=== PATIENT | male | born 1970 | race Caucasian/White ===

== ENCOUNTER 2016-08-13 10:13 | Day surgery (SDC) | payer MEDICARE ==
[2016-08-09 08:46] VITALS: BMI 27.8
--- NOTE | 2016-08-13 06:31 | P.GSHP ---
History of Present Illness H&P Date: 08/13/16 CHIEF COMPLAINT: Symptomatic right inguinal hernia with left inguinal hernia. HISTORY OF PRESENT ILLNESS: Rommel Soliz is a 46 year-old male who is a patient of Dr. Núñez. He reports that over a year history of known right inguinal hernia. In the last several weeks to months, his pain has come to be worse including swelling along the right groin that has swollen at least to the size of a golf ball. He denies any changes in bowel habits, however he also has gastroesophageal reflux disease. He denies any known familial history of hernias. He denies any abdominal surgeries. He is unable to lift. He has a personal history of brain aneurysm, where he will have severe migraine headaches. His neurosurgeon is at [facility]. At this time, he states that there is no surgical intervention needed for his brain aneurysm. As he has come to be more symptomatic of his inguinal hernia, he now presents for further surgical intervention. PAST MEDICAL HISTORY: Please see list. PAST SURGICAL HISTORY: Please see list. MEDICATIONS: Please see list. ALLERGIES: Please see list. SOCIAL HISTORY: No illicit drug use FAMILY HISTORY: No reports of Crohn disease or ulcerative colitis. REVIEW OF ORGAN SYSTEMS: Neurological: History of headaches and seizure disorder, including brain aneurysm. GI: Denies any diarrhea or constipation that is associated to his hernia. He does reports gastroesophageal reflux disease. CONSTITUTIONAL: No fevers or chills. HEENT: Denies any trouble with vision, hearing or nosebleeds. No difficulty swallowing. LYMPHATIC: The patient denies any lumps and bumps around the neck. ENDOCRINE: Denies any thyroid disorders. Denies any blood sugar glucose intolerance. RESPIRATORY: Denies pneumonia. Denies any troubles with breathing or dyspnea on exertion. CARDIOVASCULAR: Denies any chest pain, palpitations, or recent heart attacks. GENITOURINARY: Denies any blood in urine or increased urinary frequency. MUSCULOSKELETAL: Denies any back pain, stiffness or joint arthritis. PSYCHIATRIC: Denies any depression or suicidal ideation. HEMATOLOGIC: Denies any abnormal bleeding or bruising. BREASTS: Denies any breast lumps, pain or nipple discharge. PHYSICAL EXAM: VITAL SIGNS: Stable Patient is a 46-year-old male. Abdomen: 1 cm reducible umbilical hernia and also a large bulge along the right groin and small bulge along the left. Findings are consistent with inguinal hernia. GENERAL: Well developed and in no acute distress. Pleasant. HEENT: No sclera icterus. Extraocular movements grossly intact. Moist buccal mucosa. Head is atraumatic, normocephalic. Hears conversational speech. No nasal drainage. NECK: Supple without lymphadenopathy. No JV distention. CHEST: Non-labored respirations and equal bilateral excursions. CARDIOVASCULAR: Regular rate and rhythm. Palpable 2+ radial pulses. ABDOMEN: Soft. Non-tender. Nondistended. MUSCULOSKELETAL: No clubbing, cyanosis or edema. NEUROLOGIC: No focal or lateralizing signs. PSYCH: Appropriate affect. Alert and oriented to person, place and time. ASSESSMENT: 1. History of symptomatic right inguinal hernia. 2. Left inguinal hernia. 3. Umbilical hernia, reducible. 4. Likely hiatal hernia with reflux disease. PLAN: 1. I have gone over surgical options including approaches of open versus laparoscopic over robotic assisted inguinal hernia repair. He has elected for minimally invasive technique. 2. As he has bilateral inguinal hernia, he has elected for laparoscopic bilateral inguinal hernia repair. Possible robotic technique was also reviewed. 3. A placement of mesh was also described. 4. Possibility of open technique was reviewed. 5. The patient will need at least 2 weeks of recovery. 6. DVT prophylaxis. 7. Antibiotics prophylaxis. 8. Upon further discussion, he does report a family history of cardiac disease with his father dying of a heart attack. However, he has medical clearance by his primary care provider. 9. He also sees his neurosurgeon, for which no additional surgical intervention is needed at this time for his aneurysm. 10. The patient had verbally agreed to pursue with surgery as described. Calculated risks were reviewed. Past Medical History Past Medical History: Hyperlipidemia, Osteoarthritis (OA), Seizure Disorder Additional Past Medical History / Comment(s): MIGRAINE HEADACHES, ANEURYSM-LEFT SIDE OF BRAIN, SEIZURE-LAST SEIZURE 2011, History of Any Multi-Drug Resistant Organisms: None Reported Past Surgical History: No Surgical Hx Reported Past Anesthesia/Blood Transfusion Reactions: No Reported Reaction Additional Past Anesthesia/Blood Transfusion Reaction / Comment(s): FIRST ANESTHETIC Past Psychological History: No Psychological Hx Reported Smoking Status: Former smoker Past Alcohol Use History: None Reported Additional Past Alcohol Use History / Comment(s): STARTED SMOKING AT AGE 16 QUIT 2000 Past Drug Use History: None Reported - Past Family History Mother Family Medical History: No Reported History Medications and Allergies Home Medications Medication Instructions Recorded Confirmed Type No Known Home Medications [No 01/21/16 08/09/16 History Known Home Medications] Allergies Allergy/AdvReac Type Severity Reaction Status Date / Time codeine Allergy Nausea & Verified 08/09/16 08:21 Vomiting
[~2016-08-13 10:13] MED LIST: ACETAMINOPHEN TAB 500 MG TAB PO STA; BUPIVACAINE LIPOSOME/PF 1.3% 20 ML, BUPIVACAIN-EPI 0.5%-1:200,000 25 ML, SODIUM CHLORID... MISCELLANE ONE; DEXAMETHASONE SOD PHOSPHATE 10 MG/ML 1 ML VIAL IV ONE; FAMOTIDINE 20 MG/2 ML VIAL IV PRN; HEPARIN SODIUM,PORCINE 5,000 UNIT/ML 1 ML VIAL SQ ONE; HYDROmorphone 1 MG/ML 1 ML SYRINGE IVP PRN; LACTATED RINGERS 1,000 ML IV SCH; LIDOCAINE 1% 20 ML VIAL (10MG/ML) FOR IV START INTRADERMA PRN; MIDAZOLAM 2 MG/2 ML VIAL IV PRN; ONDANSETRON 4 MG/2 ML VIAL IVP ONE; SCOPOLAMINE 1.5MG/72HR PATCH TRANSDERM ONE; ceFAZolin 2 GM in SODIUM CHLORIDE 0.9% 100 ML IVPB ONE
[2016-08-13] MEDS ORDERED: LIDOCAINE 1% INJ 10MG/ML (20 ML MDV) ONE (13:34)
[2016-08-13] MEDS ORDERED: fentaNYL (PF) 50 MCG/ML 2 ML AMP ONE (13:34)
[2016-08-13] MEDS ORDERED: NEOSTIGMINE 1 MG/ML 10 ML VIAL ONE (13:34)
[2016-08-13] MEDS ORDERED: GLYCOPYRROLATE 0.2 MG/ML 2 ML VIAL ONE (13:34)
[2016-08-13] MEDS ORDERED: PROPOFOL 10 MG/ML 20 ML VIAL IV ONE (13:34)
[2016-08-13] MEDS ORDERED: KETOROLAC 30 MG/ML 1 ML VIAL ONE (13:34)
[2016-08-13] MEDS ORDERED: MIDAZOLAM 2 MG/2 ML VIAL ONE (13:34)
[2016-08-13] MEDS ORDERED: ROCURONIUM BROMIDE 10 MG/ML 10 ML VIAL IV ONE (13:34)
[2016-08-13] MEDS ORDERED: SUCCINYLCHOLINE CHLORIDE 100 MG/5 ML SYR IV ONE (13:34)
[2016-08-13] MEDS ORDERED: LACTATED RINGERS 1,000 ML IV ONE (14:38)
[2016-08-13] MEDS ORDERED: TAMSULOSIN 0.4 MG CAP.ER.24H PO STA (15:17)
--- NOTE | 2016-08-13 15:17 | P.PCN ---
Date of Procedure: 08/13/16 Preoperative Diagnosis: Bilateral inguinal hernia, initial Postoperative Diagnosis: Right incarcerated direct inguinal hernia 4 cm, indirect right inguinal hernia Nyhus type I, left inguinal lipoma, left indirect inguinal hernia Nyhus to, direct left inguinal hernia Nyhus 1 Procedure(s) Performed: Laparoscopic reduction of right incarcerated inguinal hernia, bilateral laparoscopic inguinal hernia repair 11.4 cm, laparoscopic incision of left inguinal lipoma 6 x 4 cm Implants: Ventral light ST mesh 11.4 cm Anesthesia: GETA, local Surgeon: Annie Iniguez Estimated Blood Loss (ml): 2 Pathology: other (Bilateral inguinal hernia sac with left inguinal lipoma) Condition: stable Disposition: same day Operative Findings: 4 cm defect, right inguinal hernia, large lipoma left groin 4 x 6 cm excised
[2016-08-13] MEDS ORDERED: ONDANSETRON 4 MG/2 ML VIAL IVP PRN (15:19)
[2016-08-13] MEDS ORDERED: NALOXONE 0.4 MG/ML 1 ML VIAL IV PRN (15:19)
[2016-08-13 15:41] VITALS: TEMP 97.1
[2016-08-13] MEDS ORDERED: HYDROmorphone 1 MG/ML 1 ML SYRINGE IVP ONE (16:09)
[2016-08-13] MEDS ORDERED: ONDANSETRON 4 MG/2 ML VIAL IVP ONE (16:40)
--- NOTE | 2016-08-13 16:59 | P.OP ---
Date of Procedure: 08/13/16 Description of Procedure: SURGEON: ERIC NAVA MD SELLING MANAGER: BENITEZ HUSTON PREOPERATIVE DIAGNOSIS: 1. Initial bilateral inguinal hernia. 2. Cerebral aneurysm. 3. Seizure disorder. 4. Hyperlipidemia. POSTOPERATIVE DIAGNOSES: 1. Initial bilateral inguinal hernia. 2. Cerebral aneurysm. 3. Seizure disorder. 4. Hyperlipidemia. 5. Incarcerated initial right direct inguinal hernia, 4 cm, Nyhus type III. 6. Initial right indirect inguinal hernia Nyhus type II. 7. Initial left indirect and direct inguinal hernia, Nyhus type III. 8. Left inguinal lipoma of the cord. OPERATION: 1. Laparoscopic reduction of incarcerated initial rightinguinal hernia, direct. 2. Laparoscopic repair via transabdominal approach, left inguinal hernia using Ventral ST mesh, 11.4 cm. 3. Laparoscopic repair via transabdominal approach, right inguinal hernia using Ventral ST mesh, 11.4 cm. 4. Excision of left inguinal lipoma of the cord. IMPLANTS: Ventral ST mesh, 11.4 cm, bilateral groin. ANESTHESIA: General with 85 mL Exparel with Sensorcaine and epinephrine and normal saline mixture. ESTIMATED BLOOD LOSS: 2 mL. SPECIMENS: Bilateral inguinal hernia sac. COMPLICATIONS: None. INDICATIONS: The patient is a 46-year-old male who presented to the office with acute swelling of the right groin of golf-ball size. He also reports inguinal hernia on the left side. Surgical options were discussed including open versus laparoscopic technique and he elected for laparoscopic technique. Benefits and risks including bleeding, infection, recurrence, injury to the vas deferens, sterility, chronic groin pain, possible orchiectomy as well as placement of mesh were described. Informed consent was obtained. DESCRIPTION: The patient was brought into the operating room, laid in supine position. After general induction, a Wiley catheter was placed and the abdomen was prepped and draped in standard sterile fashion and placement of Ioban draping. Prior to incision, a timeout protocol was confirmed with surgical team regarding the patient's name including procedures to be performed. A bilateral groin and inguinal block was performed using Exparel with Sensorcaine epinephrine and normal saline mixture. Via the left upper abdomen a 0 degree 5 mm laparoscopic trocar entry was performed after anesthetizing the skin with Exparel mixture and incised using a #11 blade. An optical view trocar entry was performed. The patient tolerated insufflation to 15 mm Hg pressure. Diagnostic laparoscopy demonstrated a large right inguinal hernia, direct with incarceration of greater omentum without infarction. No evidence of ischemia or obstruction was found. A pantaloon hernia was identified along the left groin. Next, one 5 mm trocar and one 11-mm trocar were placed along the left lateral abdominal wall. Attention was brought to repair of the direct right inguinal hernia. The hernia sac was evaginated whereby the peritoneum was scored using electro- Bovie cautery including a combination of cordless Harmonic scalpel. Using continuous retraction as well as external pressure along the right groin, the right inguinal hernia was completely reduced into the abdominal cavity. Please note the hernia was identified medial to the epigastric vessels hence direct. Once completely reduced into the abdominal cavity, the peritoneal sac of the hernia was stripped and a lipoma of the right groin was reduced. The sac was resected and then passed off for further pathological analysis. The size of the hernia defect was 4 cm with intraoperative films obtained. Using a Endo stitch and 2-0 Surgidac, the peritoneal defect of the right inguinal hernia site was closed using a pursestring suture of 2-0 Surgidac with a Lapra-Ty. The defect was found to be completely closed after removal of the external pressure along the right groin. Complete reduction of the right inguinal hernia was confirmed. Next, attention was brought to the contralateral side which is the left groin. A defect of the left groin was identified of 2 cm. Exploration of the left groin demonstrated a large lipoma of the cord a 4 x 6 cm which was reduced. Counter pressure along the left groin including graspers were used to reduce the hernia sac into the abdominal wall. The left hernia sac was evaginated whereby the peritoneum was scored using electro- Bovie cautery including a combination of cordless Harmonic scalpel. Please note the hernia was identified lateral to the epigastric vessels hence indirect. Once completely reduced into the abdominal cavity, the peritoneal sac of the hernia was stripped and a lipoma of the left groin was reduced. The sac was resected and then passed off for further pathological analysis. The size of the hernia defect was 2 cm with intraoperative films obtained. Using a Endo stitch and 2-0 Surgidac, the peritoneal defect of the left inguinal hernia site was closed using a pursestring suture of 2-0 Surgidac with a Lapra-Ty. The defect was found to be completely closed after removal of the external pressure along the left groin. Complete reduction of the left inguinal hernia was confirmed. As an onlay, each inguinal hernia repair were reinforced using 11.[address] mesh by [employer]. The mesh was cut in half and individually entered into the abdominal cavity. The mesh was oriented onto the left groin. Sorbafix tackers were placed along the periphery of the mesh. Care was used to avoid neurovascular structures. The inferior leaflet of the mesh was secured by the sigmoid mesocolon. Next, the right groin was prepared for a mesh. The mesh was applied onto the right groin and tacked using Sorbafix tackers. 3-0 Vicryl intracorporeal suturing was used to tack the mesh along the inferior aspect. The right and left inguinal hernia sacs were removed from the abdominal cavity using using a 10 mm and 5 mm Endo Catch bag, respectively. The 10-mm port site fascial defect was less than 8 mm in size. All instruments and pneumoperitoneum were removed from the abdominal cavity. The bilateral groin and scrotal subcutaneous emphysema had resolved including using hyperventilation of the patient. Hemostasis was excellent throughout the case. All instruments and pneumoperitoneum were evacuated from the abdominal cavity. The port sites were infiltrated using Exparel mixture. Bilateral inguinal field block was also placed with local anesthetic. The incisions were reapproximated using 4-0 Monocryl in an interrupted subcuticular fashion. Dermabond was applied to the skin. At the end of the procedure, the needle sponge and instrument count had been verified correct by surgical services asst. The patient had tolerated the procedure well and was taken to the postanesthesia care unit in stable condition. The Wiley catheter was removed. FINDINGS: 1. Nyhus type III, initial left inguinal hernia, indirect 2-cm. 2. Lipoma of the left cord, 4 x 6 cm resected. 3. Nyhus type III direct right inguinal hernia, over 4 cm in size, with incarcerated greater omentum. 4. Small direct left inguinal hernia 1 cm. 5. Small indirect right inguinal hernia 1 cm.
[2016-08-13] MEDS ORDERED: KETOROLAC 30 MG/ML 1 ML VIAL IVP SCH (18:00)
[2016-08-13 18:33] VITALS: BP 125/70; PULSE 87; RESP 20
== END 2016-08-13 18:33 | disposition home or self-care (01) ==
LOC: OR 10:13
PROVIDERS: ATTEND Surgery Plastic and Reconstructive Surgery
DX: K40.00 Bilateral inguinal hernia, with obstruction, without gangrene, not specified as recurrent (principal); D17.6 Benign lipomatous neoplasm of spermatic cord; I67.1 Cerebral aneurysm, nonruptured; G40.909 Epilepsy, unspecified, not intractable, without status epilepticus; E78.5 Hyperlipidemia, unspecified; Z88.5 Allergy status to narcotic agent; Z87.891 Personal history of nicotine dependence
CPT/HCPCS: 49650; 55559; C1781 ×2; J2250; J1100; J2710; J0690; J2405; J2001; J3010; J1885; J1170; J0330; C9290; J2704; 88302; 88304

== ENCOUNTER → 2016-08-23 | Outpatient (CLI) | payer MEDICARE ==
--- NOTE | 2016-08-23 09:39 | CT ---
EXAMINATION TYPE: CT abdomen pelvis wo con DATE OF EXAM: 08/23/2016 9:15 AM HISTORY: Umbilical Hernia per order. History of prior surgery for inguinal hernias per patient. CT DLP: 974 mGycm. Automated Exposure Control for Dose Reduction was Utilized. TECHNIQUE: CT scan of the abdomen and pelvis is performed without oral or IV contrast. COMPARISON: NONE FINDINGS: Within the limitations of a non-contrast study, the following observations are made. LUNG BASES: No significant abnormality is appreciated. LIVER/GB: Liver is isodense relative to spleen consistent with mild diffuse fatty infiltration. PANCREAS: No significant abnormality is seen. SPLEEN: No significant abnormality is seen. ADRENALS: No significant abnormality is seen. KIDNEYS: No renal stones or hydronephrosis is evident bilaterally. Few scattered pelvic phleboliths a re seen. BOWEL: Normal-appearing appendix is seen from cecum in the right lower quadrant. No suspicious small or large bowel dilatation is present. GENITAL ORGANS: No gross abnormality seen. LYMPH NODES: No greater than 1cm abdominal or pelvic lymph nodes are appreciated. OSSEOUS STRUCTURES: No significant abnormality is seen. OTHER: There is small sized fat-containing umbilical hernia. There is defect through the inner rectus muscle left midabdomen on axial image 66 without definitive defect in the outer sheath at level of umbilicus. No suspicious fat or bowel containing ventral wall hernia is seen. There is bilateral curvilinear density with ill-defined fluid in the infracolic gutters bilaterally p resumed related to prior surgery, clinical correlation advised. This is best seen near axial image 12 1. Somewhat superior than expected for normal inguinal or groin repair surgery. IMPRESSION: No suspicious ventral wall hernia identified. Other findings as noted above.
== END | disposition home or self-care (01) ==
LOC: RADCTMAIN 08:55
PROVIDERS: ATTEND Surgery Plastic and Reconstructive Surgery
DX: K42.9 Umbilical hernia without obstruction or gangrene (principal)
CPT/HCPCS: 74176

== ENCOUNTER 2016-09-10 06:43 | Day surgery (SDC) | payer MEDICARE ==
[2016-09-05 10:13] VITALS: BMI 27.8
[~2016-09-10 06:43] MED LIST changes: -ACETAMINOPHEN TAB 500 MG TAB PO STA; -BUPIVACAINE LIPOSOME/PF 1.3% 20 ML, BUPIVACAIN-EPI 0.5%-1:200,000 25 ML, SODIUM CHLORID... MISCELLANE ONE; -FAMOTIDINE 20 MG/2 ML VIAL IV PRN; -HYDROmorphone 1 MG/ML 1 ML SYRINGE IVP PRN; -LACTATED RINGERS 1,000 ML IV SCH; -LIDOCAINE 1% 20 ML VIAL (10MG/ML) FOR IV START INTRADERMA PRN; -ONDANSETRON 4 MG/2 ML VIAL IVP ONE; -SCOPOLAMINE 1.5MG/72HR PATCH TRANSDERM ONE
[2016-09-10] MEDS: LACTATED RINGERS 1,000 ML IV SCH ×2 (07:16→07:21)
[2016-09-10] MEDS ORDERED: LIDOCAINE 1% 20 ML VIAL (10MG/ML) FOR IV START INTRADERMA ONE (07:20)
[2016-09-10] MEDS: ONDANSETRON 4 MG/2 ML VIAL IVP ONE ×2 (07:22→09:57)
[2016-09-10] MEDS ORDERED: ACETAMINOPHEN IV (For NPO) 1,000 MG in EMPTY BAG 1 BAG IVPB STA (07:36)
--- NOTE | 2016-09-10 07:36 | P.GSHP ---
History of Present Illness H&P Date: 09/10/16 CHIEF COMPLAINT: Symptomatic incarcerated umbilical hernia. HISTORY OF PRESENT ILLNESS: Rommel Soliz is a 46 year-old male who is a patient of Dr. Núñez. Recently he had bilateral inguinal hernia repair without consequence almost 1 month ago. Now presents with symptomatic incarcerated umbilical hernia. He now presents for further surgical intervention. PAST MEDICAL HISTORY: Please see list. PAST SURGICAL HISTORY: Please see list. MEDICATIONS: Please see list. ALLERGIES: Please see list. SOCIAL HISTORY: No illicit drug use FAMILY HISTORY: No reports of Crohn disease or ulcerative colitis. REVIEW OF ORGAN SYSTEMS: Neurological: History of headaches and seizure disorder, including brain aneurysm. GI: Denies any diarrhea or constipation that is associated to his hernia. He does reports gastroesophageal reflux disease. CONSTITUTIONAL: No fevers or chills. HEENT: Denies any trouble with vision, hearing or nosebleeds. No difficulty swallowing. LYMPHATIC: The patient denies any lumps and bumps around the neck. ENDOCRINE: Denies any thyroid disorders. Denies any blood sugar glucose intolerance. RESPIRATORY: Denies pneumonia. Denies any troubles with breathing or dyspnea on exertion. CARDIOVASCULAR: Denies any chest pain, palpitations, or recent heart attacks. GENITOURINARY: Denies any blood in urine or increased urinary frequency. MUSCULOSKELETAL: Denies any back pain, stiffness or joint arthritis. PSYCHIATRIC: Denies any depression or suicidal ideation. HEMATOLOGIC: Denies any abnormal bleeding or bruising. BREASTS: Denies any breast lumps, pain or nipple discharge. PHYSICAL EXAM: VITAL SIGNS: Stable Patient is a 46-year-old male. Abdomen: 1 cm reducible umbilical hernia and also a large bulge along the right groin and small bulge along the left. Findings are consistent with inguinal hernia. GENERAL: Well developed and in no acute distress. Pleasant. HEENT: No sclera icterus. Extraocular movements grossly intact. Moist buccal mucosa. Head is atraumatic, normocephalic. Hears conversational speech. No nasal drainage. NECK: Supple without lymphadenopathy. No JV distention. CHEST: Non-labored respirations and equal bilateral excursions. CARDIOVASCULAR: Regular rate and rhythm. Palpable 2+ radial pulses. ABDOMEN: Soft. Tender along the umbilicus. No skin changes. Incarcerated umbilical hernia. MUSCULOSKELETAL: No clubbing, cyanosis or edema. NEUROLOGIC: No focal or lateralizing signs. PSYCH: Appropriate affect. Alert and oriented to person, place and time. ASSESSMENT: 1. Incarcerated umbilical hernia. 4. Likely hiatal hernia with reflux disease. PLAN: 1. I have gone over surgical options including approaches of open versus laparoscopic over robotic assisted inguinal hernia repair. 2. As he has incarcerated umbilical hernia, he has elected for robotic assisted laparoscopic umbilical hernia repair. 3. A placement of mesh was also described. 4. Possibility of open technique was reviewed. 5. The patient will need at least 2 weeks of recovery. 6. DVT prophylaxis. 7. Antibiotics prophylaxis. 8. The patient had verbally agreed to pursue with surgery as described. Calculated risks were reviewed. Past Medical History Past Medical History: Hyperlipidemia, Osteoarthritis (OA), Seizure Disorder Additional Past Medical History / Comment(s): MIGRAINE HEADACHES, ANEURYSM-LEFT SIDE OF BRAIN, SEIZURE-LAST SEIZURE 2011,. HX PANCREATITIS R/T PRIOR FOOD POISONING History of Any Multi-Drug Resistant Organisms: None Reported Past Surgical History: Hernia Repair Additional Past Surgical History / Comment(s): BILAT HERNIA REPAIR 08/13/16 Past Anesthesia/Blood Transfusion Reactions: No Reported Reaction Additional Past Anesthesia/Blood Transfusion Reaction / Comment(s): FIRST ANESTHETIC Past Psychological History: No Psychological Hx Reported Smoking Status: Former smoker Past Alcohol Use History: None Reported Additional Past Alcohol Use History / Comment(s): STARTED SMOKING AT AGE 16 QUIT 2000 Past Drug Use History: None Reported - Past Family History Mother Family Medical History: No Reported History Medications and Allergies Allergies Allergy/AdvReac Type Severity Reaction Status Date / Time codeine Allergy Nausea & Verified 09/05/16 10:07 Vomiting Surgical - Exam Vital Signs Temp Pulse Resp BP Pulse Ox 98.0 F 82 16 154/94 98 09/10/16 07:14 09/10/16 07:14 09/10/16 07:14 09/10/16 07:14 09/10/16 07:14
[2016-09-10] MEDS ORDERED: LIDOCAINE 1% INJ 10MG/ML (20 ML MDV) ONE (07:45)
[2016-09-10] MEDS ORDERED: PROPOFOL 10 MG/ML 20 ML VIAL IV ONE (07:45)
[2016-09-10] MEDS ORDERED: fentaNYL (PF) 50 MCG/ML 2 ML AMP ONE (07:45)
[2016-09-10] MEDS ORDERED: SUCCINYLCHOLINE CHLORIDE 100 MG/5 ML SYR IV ONE (07:45)
[2016-09-10] MEDS ORDERED: NEOSTIGMINE 1 MG/ML 10 ML VIAL ONE (07:45)
[2016-09-10] MEDS ORDERED: ACETAMINOPHEN IV (For NPO) 1,000 MG/100 ML VIAL ONE (07:45)
[2016-09-10] MEDS ORDERED: ROCURONIUM BROMIDE 10 MG/ML 10 ML VIAL IV ONE (07:45)
[2016-09-10] MEDS ORDERED: GLYCOPYRROLATE 0.2 MG/ML 2 ML VIAL ONE (07:45)
[2016-09-10] MEDS ORDERED: MIDAZOLAM 2 MG/2 ML VIAL ONE (07:45)
[2016-09-10] MEDS: BUPIVACAINE LIPOSOME/PF 1.3% 20 ML, BUPIVACAIN-EPI 0.5%-1:200,000 25 ML, SODIUM CHLORID... MISCELLANE STA ×6 (08:03→08:15)
--- NOTE | 2016-09-10 09:29 | P.PCN ---
Date of Procedure: 09/10/16 Preoperative Diagnosis: Incarcerated umbilical hernia Postoperative Diagnosis: Incarcerated umbilical hernia, incarcerated incisional hernia left upper quadrant Procedure(s) Performed: Robotic-assisted laparoscopic repair of incarcerated umbilical hernia with mesh , laparoscopic reduction and repair of incarcerated left upper quadrant incisional hernia Anesthesia: GETA, local (Exparel) Surgeon: Annie Iniguez Estimated Blood Loss (ml): 5 Pathology: none sent Condition: stable Disposition: floor Operative Findings: Incarcerated incisional hernia left upper quadrant reduced and repaired using 0 Vicryl, robotic-assisted repair of incarcerated umbilical hernia 11.4 cm ventral light mesh
[2016-09-10 09:42] VITALS: TEMP 97.3
[2016-09-10] MEDS: HYDROmorphone 1 MG/ML 1 ML SYRINGE IVP PRN ×2 (09:57→10:03)
[2016-09-10] MEDS ORDERED: KETOROLAC 30 MG/ML 1 ML VIAL IVP ONE (09:57)
[2016-09-10] MEDS ORDERED: HYDROcodone/APAP 5-325MG 1 EACH TAB PO PRN (10:03)
[2016-09-10] MEDS ORDERED: ONDANSETRON 4 MG/2 ML VIAL IVP PRN (10:03)
[2016-09-10] MEDS ORDERED: NALOXONE 0.4 MG/ML 1 ML VIAL IV PRN (10:03)
--- NOTE | 2016-09-10 10:15 | P.PN ---
Progress Note - Text To Whom It May Concern: Gopal Jin was present today 09/10/2016 for his father's surgery at [facility]. His presence was required to facilitate the care of his father. Regards, Annie Iniguez MD, FACS
[2016-09-10 10:22] VITALS: RESP 16
[2016-09-10] MEDS ORDERED: HYDROcodone/APAP 5-325MG 1 EACH TAB PO ONE (13:20)
[2016-09-10 14:15] VITALS: BP 108/73; PULSE 71
[2016-09-10] MEDS ORDERED: TAMSULOSIN 0.4 MG CAP.ER.24H PO STA (15:05)
[2016-09-10] MEDS ORDERED: KETOROLAC 30 MG/ML 1 ML VIAL IVP SCH (16:00)
--- NOTE | 2016-09-10 17:20 | P.OP ---
Date of Procedure: 09/10/16 Description of Procedure: SURGEON: ERIC INIGUEZ MD DOCK GRADER: Zoe Jeffries. PREOPERATIVE DIAGNOSES: 1. Incarcerated umbilical ventral hernia. 2. Cerebral aneurysm. 3. Seizure disorder. 4. Hyperlipidemia. POSTOPERATIVE DIAGNOSES: 1. Incarcerated umbilical ventral hernia, 3 cm. 2. Cerebral aneurysm. 3. Seizure disorder. 4. Hyperlipidemia. 5. Incarcerated incisional hernia left upper quadrant, 2 cm OPERATION: 1. Robotic-assisted laparoscopic reduction and repair of incarcerated umbilical ventral hernia, 3 cm, with Bard Ventralight ST mesh 11.4 cm. 2. Laparoscopic incarcerated incisional hernia repair, left upper quadrant. ANESTHESIA: General with 85 mL Exparel, Sensorcaine, epinephrine and normal saline mixture. ESTIMATED BLOOD LOSS: 5 mL. SPECIMENS: None. COMPLICATIONS: None. INDICATIONS: The patient is a 46-year-old male who comes in with acute incarceration of umbilical hernia. Surgical intervention with laparoscopic versus robotic and open techniques were reviewed. Placement of mesh was also reviewed. Benefits and risks were thoroughly described. Informed consent was obtained. DESCRIPTION OF PROCEDURE: The patient was brought into the operating room and laid in supine position. After general induction, the abdomen had been prepped and draped in standard sterile fashion. Ioban draping was also placed. Prior to incision, a timeout protocol was confirmed with surgical team regarding the patient's name including procedures to be performed. The robot was primed prior to the procedure. Initial incision was made with an #11 blade along the left upper quadrant after anesthetizing the skin using Exparel mixture. A 0 degree 5 mm laparoscopic trocar entry was performed. Diagnostic laparoscopy demonstrated no small bowel pathology. An incarcerated incisional hernia of the left upper quadrant was identified. Separately incarcerated umbilical hernia 3 cm was also identified. A 12 mm trocar was placed along the left lateral abdominal wall 10 cm lateral to the umbilicus. An 8 mm port was placed along the left lower quadrant under direct localization. The 5-mm port was exchanged for an 8 mm robotic port. Placements of the ports were at 10 to 15 cm from the target anatomy and at least 5 cm apart. Next, an 11.[address] mesh was entered into abdominal cavity under direct visualization. The [employer] robot was primed, prepped, draped then docked along the left side of the patient. I then sat at the robot [employer] SI console where working arms of the robot including scissor connected to cauterty and graspers were placed by campaign assistant Zoe Jeffries. Initial attention was brought to the anterior abdominal wall whereby upon careful observation a small defect of 3-cm was at the umbilics found. Using dissecting grasper as well as electro-Bovie cautery, the peritoneum was scored. The incarcerated fat of the umbilicus was delivered into the abdominal cavity. The size of the defect was 3 cm upon measurement. The fascia was cleaned of peritoneal fat to allow for 3 to 5 cm margin of the mesh. Next, hemostasis was checked with cautery. The ventral defect was closed using a running stitch of 0 V-Loc suture initially from the 12 o'clock to 6 o'clock position in a longitudinal fashion. Ventralight ST 11.4 cm, circular mesh was positioned with the rough side of the mesh was placed toward the anterior abdominal wall. The smooth side was placed towards the bowel. A grasping suture along the epicenter using 0 Prolene was brought through the skin by the campaign assistant using a Julien Lesli. Starting from 10 o'clock position to the 6 o'clock position, 2-0 V-Loc suture using a 12-inch length was ran in a peritoneum to fascia to the mesh approach. Similarly another V-Loc stitch was run from 6 o'clock to 10 o'clock completely adhering the mesh to the anterior abdominal wall. A final endoscopic imaging was obtained. The V-Loc sutures were cut with robotic scissors to the level of the fascia and extracted from the abdominal cavity by the campaign assistant. The [employer] SI robot was undocked from the patient. I re-scrubbed into the case for closure of incisions. The fascia of the 12-mm port was reapproximated using 0 Vicryl and a Julien Aly. Similarly, the left upper quadrant incarcerated incisional hernia was reduced into the abdominal cavity with graspers. Two simple sutures of 0-Vicryl and a Julien Aly were placed with complete closure of the incisional hernia. The incisions were reapproximated using 4-0 Monocryl in an interrupted subcuticular fashion. Dermabond was applied to the skin. All instruments and pneumoperitoneum were evacuated from the abdominal cavity. At the end of the procedure, needle, sponge, and instrument count had been verified correct by surgical technologist. The patient was taken to the postanesthesia care unit in stable condition with abdominal binder. Intraoperative films were described to the patient's family who were pleased with the level of care. FINDINGS: 1. Incarcerated umbilical hernia defect, 3 cm. 2. Incarcerated incisional hernia, 2 cm left upper quadrant. Plan - Discharge Summary New Discharge Prescriptions: HYDROcodone/APAP 5-325MG [Linden 5-325] 1 - 2 tab PO Q4H PRN #20 tab PRN Reason: Pain Tamsulosin HCl [Flomax] 0.4 mg PO DAILY #5 cap.er.24h Discharge Medication List Ibuprofen [Motrin] 600 mg PO Q6HR PRN #20 tab 08/13/16 [Rx] HYDROcodone/APAP 5-325MG [Lind[place] 5-325] 1 - 2 tab PO Q4H PRN #20 tab 09/10/16 [Rx ] Tamsulosin HCl [Flomax] 0.4 mg PO DAILY #5 cap.er.24h 09/10/16 [Rx] Follow up Appointment(s)/Referral(s): Eric Iniguez MD [STAFF PHYSICIAN] - 09/11/16 (FOLLOW UP WITH DR INIGUEZ ON August AT 11:40) Patient Instructions/Handouts: *Surgery [facility] - (Anesthesia) Discharge Instructions Outpatient Surgery, Laparoscopic Herniorrhaphy (DC), Abdominal Binder (DC) Activity/Diet/Wound Care/Special Instructions: No lifting over 4 pounds in 4 weeks. Please wear abdominal binder at all times. Rest the next couple of days, No driving, Drink lots of fluids, walk around the house several times a day Discharge Disposition: HOME SELF-CARE
== END 2016-09-10 15:56 | disposition home or self-care (01) ==
LOC: OR 06:43
PROVIDERS: ATTEND Surgery Plastic and Reconstructive Surgery
DX: K42.0 Umbilical hernia with obstruction, without gangrene (principal); K43.0 Incisional hernia with obstruction, without gangrene; I67.1 Cerebral aneurysm, nonruptured; G40.909 Epilepsy, unspecified, not intractable, without status epilepticus; E78.5 Hyperlipidemia, unspecified; G47.33 Obstructive sleep apnea (adult) (pediatric); Z79.1 Long term (current) use of non-steroidal anti-inflammatories (NSAID); Z88.5 Allergy status to narcotic agent; Z87.891 Personal history of nicotine dependence
CPT/HCPCS: 49653; 49655; C1781; J2250; J1644; J1100; J2710; J0690; J2405; J2001; J3010; J1885; J1170; J0131; J0330; C9290; J2704

== ENCOUNTER 2016-09-28 19:47 | Emergency (ER) | payer MEDICARE ==
[2016-09-28 21:06] VITALS: BP 127/87; PULSE 93; RESP 18; TEMP 97.6
--- NOTE | 2016-09-28 21:27 | ED ---
General Adult HPI - General Chief complaint: Extremity Injury, Lower Stated complaint: RT foot pain Time Seen by Provider: 09/28/16 21:19 Source: patient, RN notes reviewed Mode of arrival: wheelchair - History of Present Illness Initial comments: This is a 46-year-old male who presents with right foot and ankle pain. Patient states he rolled his ankle while walking down some steps this morning at his home. Patient states he has been able to ambulate around the house. Patient denies any numbness/tingling or weakness. Patient denies any recent fever, chills, shortness breath, chest pain, abdominal pain, nausea/vomiting/ diarrhea, back pain, hematuria, headache, or visual changes, or any other complaints. - Related Data Previous Rx's Medication Instructions Recorded Ibuprofen [Motrin] 600 mg PO Q6HR PRN #20 tab 08/13/16 Allergies Allergy/AdvReac Type Severity Reaction Status Date / Time codeine AdvReac Nausea & Verified 09/28/16 21:14 Vomiting Review of Systems ROS Statement: Those systems with pertinent positive or pertinent negative responses have been documented in the HPI. ROS Other: All systems not noted in ROS Statement are negative. Past Medical History Past Medical History: Hyperlipidemia, Osteoarthritis (OA), Seizure Disorder Additional Past Medical History / Comment(s): MIGRAINE HEADACHES, ANEURYSM-LEFT SIDE OF BRAIN, SEIZURE-LAST SEIZURE 2011, History of Any Multi-Drug Resistant Organisms: None Reported Past Surgical History: Hernia Repair Past Anesthesia/Blood Transfusion Reactions: No Reported Reaction Additional Past Anesthesia/Blood Transfusion Reaction / Comment(s): FIRST ANESTHETIC Past Psychological History: No Psychological Hx Reported Smoking Status: Former smoker Past Alcohol Use History: None Reported Additional Past Alcohol Use History / Comment(s): STARTED SMOKING AT AGE 16 QUIT 2000 Past Drug Use History: None Reported - Past Family History Mother Family Medical History: No Reported History General Exam - General Exam Comments Initial Comments: General: The patient is awake and alert, in no distress, and does not appear acutely ill. Neck: The neck is supple, there is no tenderness or JVD. Cardiovascular: There is a regular rate and rhythm. No murmur, rub or gallop is appreciated. Respiratory: Lungs are clear to auscultation, respirations are non-labored, breath sounds are equal. No wheezes, stridor, rales, or rhonchi. Musculoskeletal: Patient has tenderness to palpation over the lateral aspect of the right ankle and the lateral aspect of the right foot. There is no swelling , erythema or ecchymosis. Patient has full range of motion, strength 5/5 and Sensation intact. Posterior tibial and dorsalis pedis pulses are 2+ bilaterally. Neurological: A&O x 3. CN II-XII intact, There are no obvious motor or sensory deficits. Coordination appears grossly intact. Speech is normal. Skin: Skin is warm and dry and no rashes or lesions are noted. Psychiatric: Normal mood and affect. Course Vital Signs 09/28/16 21:02 Temperature 97.6 F Pulse Rate 93 Respiratory 18 Rate Blood Pressure 127/87 O2 Sat by Pulse 98 Oximetry Medical Decision Making - Medical Decision Making This is a 38-year-old male presents with right foot and ankle pain after rolling his ankle this morning. On physical exam patient has tenderness to palpation over the lateral aspect of the right ankle and the lateral aspect of the right foot. There is no swelling, erythema or ecchymosis. Patient has full range of motion, strength 5/5 and Sensation intact. Posterior tibial and dorsalis pedis pulses are 2+ bilaterally. X-rays of the right foot and ankle were done and reviewed showing: X-ray right foot: No acute processes. X-ray right ankle: No acute processes. Reported by Dr. Herndon. I discussed ankle sprain and foot sprain. Discussed rest, ice, elevate and use Milan wrap for compression. I discussed air cast for extra support while up and walking. Patient is able to ambulate in the EC but this is painful. I discussed use of crutches if patient is unable to bear weight to the right lower extremity. I discussed range of motion exercises. I discussed occult fracture. I discussed Tylenol and Motrin for any pain. I discussed return parameters.discussed that if patient's symptoms have not improved and he is still unable to bear weight without pain that he may need follow-up with orthopedics in the next 3-5 days. Discussed that patient should follow up with PCP in one to 2 days or return to the EC for any worsening symptoms or for any further concerns. Patient was receptive to this plan and patient will be discharged home. Disposition Clinical Impression: Ankle sprain, Foot sprain Disposition: HOME SELF-CARE Condition: Good Instructions: Ankle Sprain (ED), Foot Sprain (ED) Additional Instructions: please rest, ice, elevate and use Milan wrap for compression. Please use crutches if needed otherwise weight bearing as tolerated. Please perform range of motion exercises to the right ankle throughout the day. Please use Tylenol and Motrin for any pain. If symptoms do not improve in the next 7 days repeat x- rays may be needed to rule out occult fracture. If symptoms are not improved in 3-5 days he please follow-up with orthopedics. Please follow-up with family doctor in the next 2 days of symptoms have not improved. Please return to emergency room if the symptoms increase or worsen or for any other concerns. Referrals: Ld Núñez DO [Primary Care Provider] - 1-2 days Curtis Seay MD [Medical Doctor] - 1-2 days Time of Disposition: 21:52
--- NOTE | 2016-09-28 21:41 | XR ---
EXAMINATION TYPE: XR ankle complete RT DATE OF EXAM: 09/28/2016 9:35 PM COMPARISON: NONE HISTORY: Pain after injury TECHNIQUE: 3 views FINDINGS: The bones and joints and soft tissues are unremarkable. IMPRESSION: No acute process.
--- NOTE | 2016-09-28 21:42 | XR ---
EXAMINATION TYPE: XR foot complete RT DATE OF EXAM: 09/28/2016 9:35 PM COMPARISON: NONE HISTORY: Pain after injury TECHNIQUE: 3 views FINDINGS: The soft tissues are unremarkable. There is no fracture or malalignment. IMPRESSION: No acute process.
== END 2016-09-28 22:05 | disposition home or self-care (01) ==
LOC: EC 19:47
DX: S93.401A Sprain of unspecified ligament of right ankle, initial encounter (principal); S93.601A Unspecified sprain of right foot, initial encounter; Z87.891 Personal history of nicotine dependence; Z88.5 Allergy status to narcotic agent; X50.1XXA Overexertion from prolonged static or awkward postures, initial encounter; Y92.009 Unspecified place in unspecified non-institutional (private) residence as the place of occurrence of the external cause
CPT/HCPCS: 99283

== ENCOUNTER → 2016-10-15 | Outpatient (CLI) | payer MEDICARE ==
--- NOTE | 2016-10-15 10:06 | CT ---
EXAMINATION TYPE: CT abdomen wo con DATE OF EXAM: 10/15/2016 7:51 AM COMPARISON: NONE INDICATION: LUQ swelling DLP: 308.9 mGycm, Automated exposure control for dose reduction was used. CONTRAST: 0 mL of Omnipaque 300. Study performed without Oral Contrast TECHNIQUE: Axial images were obtained from above the diaphragm to the pubic rami in the axial plane a t 5 mm thick sections. Reconstructed images are reviewed on the computer in the coronal plane. FINDINGS: Limited CT sections are obtained the lung bases. The lung bases are clear. CT ABDOMEN: Liver: Normal Spleen: Normal Pancreas: Normal Adrenal glands: The adrenal glands are normal. Gallbladder: Normal Kidneys: No masses are evident. No hydronephrosis is present. No cysts are present. Aorta: Normal Inferior vena cava: Normal. Loops of bowel visualized are unremarkable. No dilated loops of bowel are evident. At the level of the umbilicus tiny hernia may be present. Within the intraperitoneal region is a low- density structure measuring 9.7 x 3.7 cm an approximately 19 Hounsfield units. Hematoma could be cons idered. This appears loculated within the [id number]. IMPRESSIONS: 1. Suspected hematoma or seroma posterior to the umbilicus.
== END | disposition home or self-care (01) ==
LOC: RADCTMAIN 07:29
PROVIDERS: ATTEND Surgery Plastic and Reconstructive Surgery
DX: R10.9 Unspecified abdominal pain (principal)
CPT/HCPCS: 74150

== ENCOUNTER → 2016-11-13 | Outpatient (CLI) | payer MEDICARE ==
--- NOTE | 2016-11-13 16:28 | US ---
EXAMINATION TYPE: US abdomen complete DATE OF EXAM: 11/13/2016 4:06 PM COMPARISON: CT abdomen October 15, 2016. CLINICAL HISTORY: Abd Pain R10.84. RUQ pain EXAM MEASUREMENTS: Liver Length: 14.4 cm Gallbladder Wall: 0.2 cm CBD: 0.3 cm Spleen: 8.4 cm Right Kidney: 9.7 x 6.5 x 5.7 cm Left Kidney: 11.3 x 5.2 x 5.3 cm Pancreas: visualized portions appear wnl, tail obscured by overlying bowel Liver: limited evaluation, best seen intercostally, attenuating, possible cystic area = 1.2 x 0.9 x 1.2cm Gallbladder: possible polyp = 0.4cm Evidence for sonographic Calloway's sign: no CBD: wnl Spleen: appears wnl Right Kidney: no evidence of hydronephrosis or mass Left Kidney: no evidence of hydronephrosis or mass Upper IVC: wnl Abd Aorta: wnl The liver is heterogeneous. Evaluation for focal masses suboptimal due to the heterogeneity. The int rahepatic portion of the IVC and proximal abdominal aorta are within normal limits. There is no evid ence of shadowing mobile cholelithiasis. Common bile duct is unremarkable. The visualized portions of the pancreas are homogenous. The spleen is unremarkable. Kidneys are symmetric and free of hydro nephrosis. No renal lesions are seen. IMPRESSION: No shadowing mobile gallstones or ultrasound evidence for acute cholecystitis.
== END | disposition home or self-care (01) ==
LOC: RADUSWWP 15:30
PROVIDERS: ATTEND Surgery Plastic and Reconstructive Surgery
DX: R10.84 Generalized abdominal pain (principal)
CPT/HCPCS: 76700

== ENCOUNTER → 2017-01-10 | Outpatient (CLI) | payer MEDICARE, OTHER ==
--- NOTE | 2017-01-10 10:05 | MR ---
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 Inflammatory changes again noted in th e left mastoid air cells. Corpus callosum, pituitary, cervical medullary junction, cerebellopontine a ngles are normal. 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 Orbits show a symmetric appearance. IMPRESSION: Essentially stable exam. No acute abnormality.
--- NOTE | 2017-01-10 10:11 | MR ---
EXAMINATION TYPE: MR angio head wo con DATE OF EXAM: 01/10/2017 COMPARISON: Prior MRA dated 12/26/2011 HISTORY: nonruptured cerebral aneurysm TECHNIQUE: Time of flight images focusing on the [employer] were performed without contrast. FINDINGS: The left ophthalmic artery origin cerebral aneurysm is again noted and shows a stable appea cristian measuring approximately 2.5 mm in the axial plane. Hypoplastic A1 segment present in the research program intern al carotid arteries on the left. Persistent origin of the posterior cerebral artery on the left is ag ain noted. Anterior and posterior circulations are intact, IMPRESSION: Stable exam.
== END ==
LOC: RADMRIMAIN 08:04
PROVIDERS: ATTEND Psychiatry & Neurology Neurology
DX: G40.109 Localization-related (focal) (partial) symptomatic epilepsy and epileptic syndromes with simple partial seizures, not intractable, without status epilepticus (principal); I67.1 Cerebral aneurysm, nonruptured; Q04.8 Other specified congenital malformations of brain
CPT/HCPCS: 70544; 70551

== ENCOUNTER → 2018-03-04 | Outpatient (CLI) | payer MEDICARE, OTHER | END | disposition home or self-care (01) | LOC: LABWHC1 07:33 | PROVIDERS: ATTEND Psychiatry & Neurology Neurology | DX: G40.109 Localization-related (focal) (partial) symptomatic epilepsy and epileptic syndromes with simple partial seizures, not intractable, without status epilepticus (principal) | CPT/HCPCS: 36415; 80177 ==

== ENCOUNTER → 2018-03-19 | Outpatient (CLI) | payer MEDICARE, OTHER ==
--- NOTE | 2018-03-20 07:04 | CT ---
EXAMINATION TYPE: CT angio head DATE OF EXAM: 03/19/2018 5:12 PM COMPARISON: MRA head January 10, 2017. HISTORY: Left internal carotid artery occlusion. CT DLP: 2244 mGycm Automated exposure control for dose reduction was used. TECHNIQUE: Performed without and with IV Contrast, patient injected with 100 mL of Isovue 370. . FINDINGS: Noncontrast CT shows no acute intracranial hemorrhage or midline shift. Ventricles and sulci are with in normal limits in size. Valentine-white matter differentiation is maintained. The visualized paranasal s inuses are clear and the globes are intact bilaterally. Dedicated CTA imaging redemonstrates dominant left vertebral artery. Vertebral arteries are patent to basilar junction. There is hypoplastic right posterior communicating artery redemonstrated. There is hypoplastic left P1 segment, filling of left P2 segment due to patent left-sided posterior communica ting artery. No significant stenosis or aneurysmal change is seen. No significant change from prior M RI. Images of the anterior circulation show tortuous course to the anterior cerebral arteries. There is p atent anterior communicating artery seen. There is no significant focal stenosis or new aneurysmal ch addison identified. Tiny focal aneurysm at origin of left ophthalmic artery along superior surface of th e distal left internal carotid artery is less well-seen on CTA images versus corresponding MRA. IMPRESSION: NO NEW ANEURYSM IS SEEN. TINY 2.5 MM ANEURYSM AT ORIGIN OF LEFT OPHTHALMIC ARTERY ON MRA IS LESS WELL SEEN ON CTA BUT PRESUMED STABLE.
== END | disposition home or self-care (01) ==
LOC: RADCTMAIN 16:36
PROVIDERS: ATTEND Neurological Surgery
DX: I65.22 Occlusion and stenosis of left carotid artery (principal)
CPT/HCPCS: 70496; Q9967

== ENCOUNTER → 2018-07-09 | Outpatient (CLI) | payer MEDICARE, OTHER ==
--- NOTE | 2018-07-09 14:22 | MR ---
EXAMINATION TYPE: MR angio head wo con DATE OF EXAM: 07/09/2018 COMPARISON: MRA [place] January 10, 2017 HISTORY: Partial epilepsy per order TECHNIQUE: Time of flight images focusing on the [place] [employer] were performed without contrast.. 2-D and 3-D postprocessing imaging is performed on MRI scanner and reviewed. FINDINGS: Dominant left vertebral artery is redemonstrated. Vertebral arteries are patent to basilar junction. There is no significant focal stenosis in the posterior circulation. There is hypoplastic r ight posterior communicating artery. There is hypoplastic left P1 segment with filling of P2 segment due to patent left posterior communicating artery. No aneurysm is evident. Images of the anterior circulation show tortuous course to distal internal carotid arteries bilateral ly. There is focal aneurysm near origin of left ophthalmic artery seen best image 93 measuring roughl y 1.8 mm unchanged from prior. There is small caliber but patent left A1 segment. There is patent ant erior communicating artery filling left A2 segment. No new aneurysm is seen. IMPRESSION: Stable small aneurysm at the left ophthalmic artery origin, I measure at 1.8 mm. Prior re port measures 2.5 mm. No new aneurysm is seen.
--- NOTE | 2018-07-09 14:39 | MR ---
EXAMINATION TYPE: MR brain wo con DATE OF EXAM: 07/09/2018 COMPARISON: MRI brain January 10, 2017 HISTORY: Partial epilepsy TECHNIQUE: Multiplanar, multisequence imaging of the brain and brainstem is performed without IV cont rast. FINDINGS: Diffusion weighted images demonstrate no evidence of a recent infarct or other diffusion abnormality. There is no extraaxial fluid collection or significant white matter signal abnormality. The ventricu lar system and cisternal spaces are normal in size and appearance. The brain volume is age appropria te. Midline structures demonstrate normal morphology. The craniocervical junction appears within normal limits. Normal vascular flow voids are present. The visualized sinuses are clear and the globes are i ntact. Persistent opacity inferior left mastoid air cells likely reflects retained secretions is unch anged from prior. IMPRESSION: Unremarkable MRI of the brain. No significant change from prior CT
== END | disposition home or self-care (01) ==
LOC: RADMRIMAIN 13:28
PROVIDERS: ATTEND Psychiatry & Neurology Neurology
DX: I67.1 Cerebral aneurysm, nonruptured (principal); G40.109 Localization-related (focal) (partial) symptomatic epilepsy and epileptic syndromes with simple partial seizures, not intractable, without status epilepticus
CPT/HCPCS: 70544; 70551; 74176

== ENCOUNTER → 2018-07-09 | Outpatient (CLI) | payer MEDICARE, OTHER ==
--- NOTE | 2018-07-09 09:38 | CT ---
EXAMINATION TYPE: CT abdomen pelvis wo con DATE OF EXAM: 07/09/2018 HISTORY: Abdominal wall mass per order. Mid abdominal mass for [address] DLP: 942 mGycm. Automated Exposure Control for Dose Reduction was Utilized. TECHNIQUE: CT scan of the abdomen and pelvis is performed without oral or IV contrast. COMPARISON: CT abdomen and pelvis August 23, [address] abdomen October 15, 2016 FINDINGS: Within the limitations of a non-contrast study, the following observations are made. LUNG BASES: No significant abnormality is appreciated. Liver: Liver remains heterogeneously hypodense consistent with diffuse fatty infiltration. PANCREAS: No significant abnormality is seen. SPLEEN: No significant abnormality is seen. ADRENALS: No significant abnormality is seen. KIDNEYS: No renal calculi or hydronephrosis. Scattered pelvic phleboliths redemonstrated. BOWEL: Incidental normal-appearing appendix ascending from cecum. GENITAL ORGANS: No gross abnormality seen. LYMPH NODES: No greater than 1cm abdominal or pelvic lymph nodes are appreciated. OSSEOUS STRUCTURES: No significant abnormality is seen. OTHER: There is scar tissue above and at level of umbilicus. No recurrent ventral wall hernia is iden tified. No suspicious inguinal hernias are seen. IMPRESSION: No recurrent ventral wall hernia. No new suspicious masses or fluid collections.
== END | disposition home or self-care (01) ==
LOC: RADCTMAIN 08:41
PROVIDERS: ATTEND Surgery Plastic and Reconstructive Surgery
DX: R19.00 Intra-abdominal and pelvic swelling, mass and lump, unspecified site (principal)
CPT/HCPCS: 74176

== ENCOUNTER 2018-08-15 10:32 | Day surgery (SDC) | payer MEDICARE, OTHER ==
[2018-08-13 11:06] VITALS: BMI 28.0
[~2018-08-15 10:32] MED LIST changes: +LACTATED RINGERS 1,000 ML IV SCH; +MIDAZOLAM (PF) 2 MG/2 ML VIAL IV PRN; -MIDAZOLAM 2 MG/2 ML VIAL IV PRN; +ONDANSETRON 4 MG/2 ML VIAL IVP ONE; +SCOPOLAMINE 1.5MG/72HR PATCH TRANSDERM ONE; -ceFAZolin 2 GM in SODIUM CHLORIDE 0.9% 100 ML IVPB ONE; +ceFAZolin IN SWFI 2 GM/20 ML SYRINGE IVP ONE; +fentaNYL (PF) 50 MCG/ML 2 ML AMP IV PRN
[2018-08-15] MEDS ORDERED: ACETAMINOPHEN IV (For NPO) 1,000 MG in EMPTY BAG 1 BAG IVPB ONE (11:42)
--- NOTE | 2018-08-15 11:42 | P.GSHP ---
History of Present Illness H&P Date: 08/15/18 CHIEF COMPLAINT: Ventral hernia HISTORY OF PRESENT ILLNESS: The patient is a 48-year-old male who presents with a history of swelling and pain along the abdomen from a hernia. Now he presents for surgical intervention. PAST MEDICAL HISTORY: Please see list. PAST SURGICAL HISTORY: Please see list. MEDICATIONS: Please see list. ALLERGIES: Please see list. SOCIAL HISTORY: No illicit drug use FAMILY HISTORY: No reports of Crohn disease or ulcerative colitis. REVIEW OF ORGAN SYSTEMS: CONSTITUTIONAL: No reports of fevers or chills. No reports of weight loss despite prior attempts. GI: Denies any blood in stools or constipation. PHYSICAL EXAM: VITAL SIGNS: Stable GENERAL: Well-developed pleasant male in no acute distress. HEENT: No scleral icterus. Extraocular movements grossly intact. Moist buccal mucosa. NECK: Supple without lymphadenopathy. CHEST: Unlabored respirations. Equal bilateral excursions. CARDIOVASCULAR: Regular rate and rhythm. Distal 2+ pulses. ABDOMEN: Soft, nondistended. Palpable defect of the abdomen. No peritoneal signs. MUSCULOSKELETAL: No clubbing, cyanosis, or edema. ASSESSMENT: 1. Ventral hernia, epigastrium PLAN: 1. Recommend proceeding with robotic ventral hernia repair with mesh. 2. Benefits and risks of surgical intervention was discussed including possibility of open technique. 3. DVT prophylaxis. 4. Antibiotic prophylaxis. Past Medical History Past Medical History: GERD/Reflux, Hyperlipidemia, Neurologic Disorder, Osteoarthritis (OA), Seizure Disorder, Sleep Apnea/CPAP/BIPAP Additional Past Medical History / Comment(s): MIGRAINE HEADACHES, ANEURYSM-LEFT SIDE OF BRAIN, SEIZURE-LAST SEIZURE 2011, has machine for sleep apnea History of Any Multi-Drug Resistant Organisms: None Reported Past Surgical History: Hernia Repair Past Anesthesia/Blood Transfusion Reactions: No Reported Reaction Additional Past Anesthesia/Blood Transfusion Reaction / Comment(s): FIRST ANESTHETIC Smoking Status: Former smoker - Past Family History Mother Family Medical History: No Reported History Brother(s) Family Medical History: Cancer Additional Family Medical History / Comment(s): prostate cancer Medications and Allergies Home Medications Medication Instructions Recorded Confirmed Type Ranitidine HCl [Zantac] 150 mg PO BID 08/13/18 08/13/18 History Topiramate [Topamax] 25 mg PO BID 08/13/18 08/13/18 History levETIRAcetam 750 mg PO BID 08/13/18 08/13/18 History Allergies Allergy/AdvReac Type Severity Reaction Status Date / Time codeine AdvReac Nausea & Verified 08/13/18 10:55 Vomiting
[2018-08-15] MEDS ORDERED: LIDOCAINE 1% 20 ML VIAL (10MG/ML) FOR IV START INTRADERMA ONE (12:44)
[2018-08-15 13:01] LABS: HCT 42.7 % (39.0-53.0); HGB 14.2 gm/dL (13.0-17.5); MCH 30.7 pg (25.0-35.0); MCHC 33.2 g/dL (31.0-37.0); MCV 92.4 fL (80.0-100.0); Mean Platelet Volume 8.5; Platelet Count 201 k/uL (150-450); RBC 4.62 m/uL (4.30-5.90); RDW 12.7 % (11.5-15.5); WBC 6.4 k/uL (3.8-10.6)
[2018-08-15] MEDS ORDERED: MIDAZOLAM 2 MG/2 ML VIAL IVP ONE (13:11)
[2018-08-15] MEDS ORDERED: fentaNYL (PF) 50 MCG/ML 2 ML AMP IVP ONE (13:12)
[2018-08-15] MEDS ORDERED: ROPIVACAINE 5 MG/ML 30 ML VIAL ONE (13:27)
[2018-08-15] MEDS ORDERED: LIDOCAINE 1% INJ 10MG/ML (20 ML MDV) ONE (13:27)
[2018-08-15] MEDS ORDERED: NEOSTIGMINE 1 MG/ML 10 ML VIAL ONE (13:27)
[2018-08-15] MEDS ORDERED: SUCCINYLCHOLINE CHLORIDE 100 MG/5 ML SYR IV ONE (13:27)
[2018-08-15] MEDS ORDERED: ROCURONIUM BROMIDE 10 MG/ML 10 ML VIAL IV ONE (13:27)
[2018-08-15] MEDS ORDERED: GLYCOPYRROLATE 0.2 MG/ML 2 ML VIAL ONE (13:27)
[2018-08-15] MEDS ORDERED: PROPOFOL 10 MG/ML 20 ML VIAL IV ONE (13:27)
[2018-08-15] MEDS ORDERED: fentaNYL (PF) 50 MCG/ML 2 ML AMP ONE (13:27)
[2018-08-15] MEDS ORDERED: BUPIVACAIN-EPI 0.5%-1:200,000 30 ML VIAL SQ ONE (13:49)
--- NOTE | 2018-08-15 13:49 | P.ONQ ---
Anesthesiology Proc Note - PNB - Peripheral Nerve Block Performed Bilateral Rectus Abdominis Single Time Out Performed: Yes (1312) Procedure Start Time: 13:13 Procedure Stop Time: :20 Indication: Acute Post-Operative Pain, Dx/Pain Location (Abdominal pain), Requested by physician Sedation Type: Sedate with meaningful contact maintained Preparation: Sterile Prep Position: Supine Catheter: None Needle Types: On-Q Needle Size: 100mm (4") Needle Gauge: 21 Technique: Ultrasound Injectate: 0.5% Ropivacaine (see comment for volume) (15ml each side) Blood Aspirated: No Pain Paresthesia on Injection Noted: No Resistance on Injection: Normal Events: Uneventful and Well Tolerated
[2018-08-15] MEDS ORDERED: LACTATED RINGERS 1,000 ML IV ONE (14:51)
[2018-08-15 15:11] VITALS: TEMP 97
--- NOTE | 2018-08-15 15:13 | P.OP ---
Date of Procedure: 08/15/18 Description of Procedure: SURGEON: ANNIE INIGUEZ MD PREOPERATIVE DIAGNOSES: 1. Incarcerated initial incisional hernia with incarceration 2. Seizure disorder 3. Migraine headaches 4. History of brain aneurysm 5. Gastroeosphageal reflux disease POSTOPERATIVE DIAGNOSES: 1. Incarcerated initial incisional hernia with incarceration, 3 cm, epigastrium 2. Seizure disorder 3. Migraine headaches 4. History of brain aneurysm 5. Gastroeosphageal reflux disease 6. Severe peritoneal adhesions. OPERATION: 1. Robotic-assisted da Celia Xi laparoscopic extensive lysis of adhesions, greater omentum to abdominal wall 2. Robotic-assisted da Celia Xi laparoscopic repair of initial incarcerated incisional hernia 3-cm with mesh, ventralight ST mesh 11.4 cm ANESTHESIA: General with local ESTIMATED BLOOD LOSS: 5 mL. SPECIMENS: None COMPLICATIONS: None. INDICATIONS: The patient is a 48-year-old male who presents ventral hernia of the umbilicus. Surgical intervention with laparoscopic versus robotic and open techniques were reviewed. Placement of mesh was also reviewed. Benefits and risks were thoroughly described. Informed consent was obtained. DESCRIPTION OF PROCEDURE: The patient was brought into the operating room and laid in supine position. After general induction, the abdomen had been prepped and draped in standard sterile fashion. Ioban draping was also placed. Prior to incision, a timeout protocol was confirmed with surgical team regarding the patient's name including procedures to be performed. The robot was primed prior to the procedure. A field block using local anesthetic was placed along hernia site including the proposed port sites. Initial incision was made with an #11 blade along the left upper quadrant. A 0 degree 5 mm laparoscopic trocar entry was performed and insufflated. Two 8 mm ports were placed along the left lateral abdominal wall under direct localization. The 5-mm port was exchanged for an 8 mm robotic port. Placements of the ports were 15 cm from the target anatomy and 10 cm apart. The Lecturioi Xi robot was previously primed, prepped and draped then docked along the right side of the patient. I then sat at the robot Da Celia Xi console where working arms of the robot including Bovie cautery connected to robotic scissors, vessel sealer, needle diesel pile driver operator, and graspers placed by the sugar laboratory assistant. Moderate peritoneal adhesions of greater omentum to abdominal wall was found from his previous umbilical hernia. No recurrence was found at the umbilicus. Extensive lysis of adhesions at least 30 minutes was performed to clean the peritoneal adhesions from his mesh repair and to identify his incisional hernia. A fascial defect of 3 cm of the epigastrium between the xipohoid and umbilicus was identified after cleaning the peritoneal fat of the abdominal wall and reducing an incarcerated omentum. The incarcerated contents was reduced as the peritoneal fat was cleaned from the abdominal wall. Next, hemostasis was checked with cautery. The hernia defect was oversewn using #1 Stratafix with fascial imbrication x 3. Next, ventralight ST mesh 11.4 cm was cut in half and was placed with the rough side towards the abdominal wall. 2-0 VLOC 9 inch sutures were used to fixate the mesh. A final endoscopic imaging was obtained. All instruments and pneumoperitoneum were evacuated from the abdominal cavity. The da Celia Xi robot was undocked from the patient. I re-scrubbed into the case for closure of incisions. The fascia of the 12-mm port was probed and less than 8-mm in size. The incisions were reapproximated using 4-0 Monocryl in an interrupted subcuticular fashion. Liquid glue was applied to the skin after cleansing the skin with normal saline and dilute hydrogen peroxide. An abdominal binder was placed. An umbilical dressing was placed prior. At the end of the procedure, needle, sponge, and instrument count had been verified correct by train control technician. The patient was taken to the postanesthesia care unit in stable condition. FINDINGS: 1. Initial incarcerated incisional hernia 3-cm of the epigastrium 2. Severe peritoneal adhesions along the midabdomen completely lysed. 3. Console time 37 minutes Plan - Discharge Summary Discharge Rx Participant: No New Discharge Prescriptions: New Ibuprofen [Motrin] 600 mg PO Q8HR PRN #30 tab PRN Reason: Pain No Action Topiramate [Topamax] 25 mg PO BID levETIRAcetam 750 mg PO BID Ranitidine HCl [Zantac] 150 mg PO BID Discharge Medication List Ranitidine HCl [Zantac] 150 mg PO BID 08/13/18 [History] Topiramate [Topamax] 25 mg PO BID 08/13/18 [History] levETIRAcetam 750 mg PO BID 08/13/18 [History] Ibuprofen [Motrin] 600 mg PO Q8HR PRN #30 tab 08/15/18 [Rx] Follow up Appointment(s)/Referral(s): Annie Iniguez MD [STAFF PHYSICIAN] - 08/19/18 Patient Instructions/Handouts: Laparoscopic Herniorrhaphy (DC), Abdominal Binder (DC) Activity/Diet/Wound Care/Special Instructions: No lifting over 4 pounds in 4 weeks. No bathtub soaks. May shower. Discharge Disposition: HOME SELF-CARE
[2018-08-15] MEDS ORDERED: IBUPROFEN 200 MG TAB PO ONE (16:19)
[2018-08-15 18:16] VITALS: BP 109/68; PULSE 68; RESP 18
== END 2018-08-15 18:16 | disposition home or self-care (01) ==
LOC: OR 10:32
PROVIDERS: ATTEND Surgery Plastic and Reconstructive Surgery
DX: K43.0 Incisional hernia with obstruction, without gangrene (principal); K66.0 Peritoneal adhesions (postprocedural) (postinfection); G40.909 Epilepsy, unspecified, not intractable, without status epilepticus; G43.909 Migraine, unspecified, not intractable, without status migrainosus; K21.9 Gastro-esophageal reflux disease without esophagitis; I67.1 Cerebral aneurysm, nonruptured; E78.5 Hyperlipidemia, unspecified; G47.33 Obstructive sleep apnea (adult) (pediatric); Z99.89 Dependence on other enabling machines and devices; Z87.891 Personal history of nicotine dependence; Z79.899 Other long term (current) drug therapy; Z88.5 Allergy status to narcotic agent
CPT/HCPCS: 64488; 85027; 49655; C1781; J2250; J1644; J1100; J2710; J2405; J2001; J3010; J2795; J0131; J0330; J2704; J0690

== ENCOUNTER → 2018-08-27 | Outpatient (CLI) | payer MEDICARE, OTHER ==
[2018-08-27 08:24] LABS: Basophils # (A) 0.1 k/uL (0-0.2); Basophils % (A) 1 %; Eosinophils # (A) 0.2 k/uL (0-0.7); Eosinophils % (A) 3 %; HCT 43.9 % (39.0-53.0); HGB 14.4 gm/dL (13.0-17.5); Lymphocytes # (A) 1.6 k/uL (1.0-4.8); Lymphocytes % (A) 28 %; MCH 30.7 pg (25.0-35.0); MCHC 32.8 g/dL (31.0-37.0); MCV 93.6 fL (80.0-100.0); Mean Platelet Volume 7.9; Monocytes # (A) 0.3 k/uL (0-1.0); Monocytes % (A) 5 %; Neutrophils # (A) 3.5 k/uL (1.3-7.7); Neutrophils % (A) 61 %; Platelet Count 228 k/uL (150-450); RBC 4.69 m/uL (4.30-5.90); RDW 12.4 % (11.5-15.5); WBC 5.7 k/uL (3.8-10.6)
[2018-08-27 12:23] LABS: Anion Gap 7.3 mmol/L (4.00-12.00); Calcium 9.3 mg/dL (8.7-10.3); Carbon Dioxide 26.7 mmol/L (21.6-31.8); LDL Cholesterol,Calculated 126.8 mg/dL (0.0-131.0); Potassium 4.6 mmol/L (3.5-5.5); VLDL Calculation 19.2 mg/dL (5.00-40.00)
== END | disposition home or self-care (01) ==
LOC: LABWHC1 07:38
PROVIDERS: ATTEND Psychiatry & Neurology Neurology
DX: Z12.5 Encounter for screening for malignant neoplasm of prostate (principal); D29.1 Benign neoplasm of prostate; E78.5 Hyperlipidemia, unspecified; G40.109 Localization-related (focal) (partial) symptomatic epilepsy and epileptic syndromes with simple partial seizures, not intractable, without status epilepticus; Z51.81 Encounter for therapeutic drug level monitoring
CPT/HCPCS: 36415; 80048; 80061; 80177; 84153; 84450; 84460; 85025

== ENCOUNTER 2018-08-29 18:09 | Emergency (ER) | payer MEDICARE, OTHER ==
[2018-08-29] MEDS ORDERED: DIPH,PERTUS(ACELL)TETVAC-LF 0.5 ML VIAL IM ONE (18:39)
[2018-08-29] MEDS ORDERED: LIDOCAINE 1% INJ 10MG/ML (20 ML MDV) SQ ONE (18:43)
--- NOTE | 2018-08-29 18:57 | ED ---
Lower Extremity Injury HPI - General Chief Complaint: Extremity Injury, Lower Stated Complaint: Foot injury Time Seen by Provider: 08/29/18 18:14 Source: patient Mode of arrival: wheelchair Limitations: no limitations - History of Present Illness Initial Comments: -year-old male no past medical history presents today for chief complaint of puncture to right foot. Patient states he stepped on something that went through his shoe and entered his right foot. Patient denies any retained foreign body. Patient states there is mild tenderness when he walks. Denies significant pain. Patient denies fall or injury to any other extremity. Patient denies recent antibiotic use. Patient denies any ALLERGIES to antibiotics therapy. Remaining review of system negative, patient denies any recent fever, chills, shortness of breath, chest pain, back pain, abdominal pain , nausea or vomiting, numbness or tingling, dysuria or hematuria, constipation or diarrhea, headaches or visual changes, or any other complaints. Patient was wearing a bursa tissues. Upon arrival patient's vital signs within acceptable limits. Patient appears well signs of acute distress. No active bleeding - Related Data Home Medications Medication Instructions Recorded Confirmed Ranitidine HCl [Zantac] 150 mg PO BID 08/13/18 08/29/18 Topiramate [Topamax] 25 mg PO BID 08/13/18 08/29/18 levETIRAcetam 750 mg PO BID 08/13/18 08/29/18 Ibuprofen [Motrin] 600 mg PO HS 08/29/18 08/29/18 Previous Rx's Medication Instructions Recorded Cephalexin [Keflex] 500 mg PO Q8HR 3 Days #9 cap 08/29/18 Ciprofloxacin HCl [Cipro] 500 mg PO Q12H 5 Days #10 tab 08/29/18 Allergies Allergy/AdvReac Type Severity Reaction Status Date / Time codeine AdvReac Nausea & Verified 08/29/18 18:45 Vomiting Review of Systems ROS Statement: Those systems with pertinent positive or pertinent negative responses have been documented in the HPI. ROS Other: All systems not noted in ROS Statement are negative. Past Medical History Past Medical History: GERD/Reflux, Hyperlipidemia, Neurologic Disorder, Osteoarthritis (OA), Seizure Disorder, Sleep Apnea/CPAP/BIPAP Additional Past Medical History / Comment(s): MIGRAINE HEADACHES, ANEURYSM-LEFT SIDE OF BRAIN, SEIZURE-LAST SEIZURE 2011, has machine for sleep apnea History of Any Multi-Drug Resistant Organisms: None Reported Past Surgical History: Hernia Repair Past Anesthesia/Blood Transfusion Reactions: No Reported Reaction Additional Past Anesthesia/Blood Transfusion Reaction / Comment(s): FIRST ANESTHETIC Past Psychological History: No Psychological Hx Reported Smoking Status: Former smoker Past Alcohol Use History: None Reported Past Drug Use History: None Reported - Past Family History Mother Family Medical History: No Reported History Brother(s) Family Medical History: Cancer Additional Family Medical History / Comment(s): prostate cancer General Exam - General Exam Comments Initial Comments: General: The patient is awake and alert, in no distress, and does not appear acutely ill. Eye: Pupils are equal, round and reactive to light, extra-ocular movements are intact. No nystagmus. There is normal conjunctiva bilaterally. No signs of icterus. Ears, nose, mouth and throat: There are moist mucous membranes and no oral lesions. Neck: The neck is supple, there is no tenderness or JVD. Cardiovascular: There is a regular rate and rhythm. No murmur, rub or gallop is appreciated. Respiratory: Lungs are clear to auscultation, respirations are non-labored, breath sounds are equal. No wheezes, stridor, rales, or rhonchi. Musculoskeletal: Normal ROM, no tenderness. Strength 5/5. Sensation intact. DP pulses equal bilaterally 2+. Neurological: A&O x 3. CN II-XII intact, There are no obvious motor or sensory deficits. Coordination appears grossly intact. Speech is normal. Skin: Skin is warm and dry and no rashes. Mild pinpoint puncture of the plantar surface of the right foot. No evidence of retained foreign body and physical examination. Very mild tenderness to palpation of puncture site. No surrounding erythema. Soft tissue swelling. Psychiatric: Cooperative, appropriate mood & affect, normal judgment. Limitations: no limitations Course Vital Signs 08/29/18 18:11 Temperature 97.7 F Pulse Rate 77 Respiratory 18 Rate Blood Pressure 124/92 O2 Sat by Pulse 98 Oximetry Medical Decision Making - Medical Decision Making 48-year-old male presenting for puncture wound of right foot. Patient tetanus updated. Patient placed on prophylactic antibiotics with pseudomonal coverage. Patient denies any anabolic ALLERGIES. Imaging studies negative for retained foreign body. No clinical indication of retained foreign body. Patient will pass intact. This time we do feel patient is stable for discharge with outpatient follow-up for wound check in the next 48 hours. Patient agreeable plan and discharged my questions at this time. Case discussed briefly with attending provider Dr. Naidu prior to patient discharge. Risk of infection discussed with patient in regards to puncture wounds, area of irrigated and cleansed prior to discharge. Disposition Clinical Impression: Puncture wound of right foot Disposition: HOME SELF-CARE Condition: Good Instructions (If sedation given, give patient instructions): Puncture Wound (ED ) Additional Instructions: Please use medication as discussed, pickle cutter from your pharmacy. Please follow- up with family doctor in the next 2 days for wound check. Please return to emergency room if the symptoms increase or worsen or for any other concerns. Prescriptions: Cephalexin [Keflex] 500 mg PO Q8HR 3 Days #9 cap Ciprofloxacin HCl [Cipro] 500 mg PO Q12H 5 Days #10 tab Is patient prescribed a controlled substance at d/c from ED?: No Referrals: Ld Núñez DO [Primary Care Provider] - 1-2 days Time of Disposition: 18:57
--- NOTE | 2018-08-29 19:10 | XR ---
EXAMINATION TYPE: XR foot limited RT DATE OF EXAM: 08/29/2018 COMPARISON: 09/28/2016 HISTORY: Puncture wound. Foot pain TECHNIQUE: 2 views FINDINGS: I see no fracture nor dislocation. Metatarsals are intact. There is no sign of a foreign donna dy. Joint spaces are fairly normal. IMPRESSION: Negative right foot exam. No foreign body seen.
[2018-08-29 20:02] VITALS: BP 136/106; PULSE 82; RESP 19; TEMP 97.5
== END 2018-08-29 20:00 | disposition home or self-care (01) ==
LOC: EC 18:09
DX: S91.331A Puncture wound without foreign body, right foot, initial encounter (principal); K21.9 Gastro-esophageal reflux disease without esophagitis; G40.909 Epilepsy, unspecified, not intractable, without status epilepticus; M19.90 Unspecified osteoarthritis, unspecified site; G47.30 Sleep apnea, unspecified; Z87.891 Personal history of nicotine dependence; Z88.5 Allergy status to narcotic agent; Z79.1 Long term (current) use of non-steroidal anti-inflammatories (NSAID); Z79.899 Other long term (current) drug therapy; Z86.69 Personal history of other diseases of the nervous system and sense organs; Z99.89 Dependence on other enabling machines and devices; Z23 Encounter for immunization; W22.8XXA Striking against or struck by other objects, initial encounter; Y93.01 Activity, walking, marching and hiking
CPT/HCPCS: 73620; 90715; 99283; 90471; J2001

== ENCOUNTER 2022-11-26 20:22 | Emergency (ER) | payer MEDICARE, OTHER ==
[2022-11-26 20:41] VITALS: TEMP 97.9
[2022-11-26] MEDS ORDERED: KETOROLAC 15 MG/ML 1 ML VIAL IM STA (21:00)
--- NOTE | 2022-11-26 21:03 | ED ---
General Adult HPI - General Chief complaint: Extremity Problem,Nontraumatic Stated complaint: LT LEG SWELLING Time Seen by Provider: 11/26/22 20:42 Source: patient, RN notes reviewed, old records reviewed Mode of arrival: wheelchair Limitations: no limitations - History of Present Illness Initial comments: Nontoxic-appearing 52-year-old male presents to the emergency room with complaints of left lower leg cramping all day noticed some swelling today around 8 PM before going to bed. Denies any injuries. Denies any chest pain or shortness of breath. Does have a history of seizures and GERD. -: days(s) (1) Location: left, lower extremity Radiation: non-radiation Severity scale (1-10): 7 Quality: other (cramp) Consistency: constant Improves with: none Associated Symptoms: denies other symptoms Treatments Prior to Arrival: none - Related Data Home Medications Medication Instructions Recorded Confirmed Ranitidine HCl [Zantac] 150 mg PO BID 08/13/18 08/29/18 Topiramate [Topamax] 25 mg PO BID 08/13/18 08/29/18 levETIRAcetam 750 mg PO BID 08/13/18 08/29/18 Ibuprofen [Motrin] 600 mg PO HS 08/29/18 08/29/18 Previous Rx's Medication Instructions Recorded Cephalexin [Keflex] 500 mg PO Q8HR 3 Days #9 cap 08/29/18 Ciprofloxacin HCl [Cipro] 500 mg PO Q12H 5 Days #10 tab 08/29/18 Nirmatrelvir/Ritonavir [Paxlovid 1 each PO BID #1 pack 02/19/22 2X150 mg-100 mg (Eua)] Allergies Allergy/AdvReac Type Severity Reaction Status Date / Time codeine AdvReac Nausea & Verified 11/26/22 20:38 Vomiting Review of Systems ROS Statement: Those systems with pertinent positive or pertinent negative responses have been documented in the HPI. ROS Other: All systems not noted in ROS Statement are negative. Past Medical History Past Medical History: GERD/Reflux, Hyperlipidemia, Neurologic Disorder, Osteoarthritis (OA), Seizure Disorder, Sleep Apnea/CPAP/BIPAP Additional Past Medical History / Comment(s): MIGRAINE HEADACHES, ANEURYSM-LEFT SIDE OF BRAIN, SEIZURE-LAST SEIZURE 2011, has machine for sleep apnea History of Any Multi-Drug Resistant Organisms: None Reported Past Surgical History: Hernia Repair Past Anesthesia/Blood Transfusion Reactions: No Reported Reaction Additional Past Anesthesia/Blood Transfusion Reaction / Comment(s): FIRST ANESTHETIC Past Psychological History: No Psychological Hx Reported Smoking Status: Former smoker Past Alcohol Use History: None Reported Past Drug Use History: None Reported - Past Family History Mother Family Medical History: No Reported History Brother(s) Family Medical History: Cancer Additional Family Medical History / Comment(s): prostate cancer General Exam Limitations: no limitations General appearance: alert, in no apparent distress Head exam: Present: atraumatic Respiratory exam: Absent: respiratory distress, accessory muscle use Cardiovascular Exam: Present: regular rate Extremities exam: Present: full ROM, tenderness (left calf), normal capillary refill, calf tenderness (left). Absent: pedal edema Left Hip exam: Present: full ROM. Absent: tenderness Upper Leg exam: Present: full ROM. Absent: tenderness Knee exam: Present: full ROM. Absent: tenderness Lower Leg exam: Present: full ROM, tenderness (calf), swelling (minimal), Homans' sign. Absent: ecchymosis, deformity, erythema Ankle exam: Present: full ROM. Absent: tenderness, swelling Foot/Toe exam: Present: full ROM. Absent: tenderness, swelling Neurovascular tendon exam: Present: no vascular compromise. Absent: abnormal cap refill, extremity cold to touch, pallor, foot drop Neurological exam: Present: alert, oriented X3 Psychiatric exam: Present: normal affect, normal mood Skin exam: Present: warm, dry, normal color. Absent: cyanosis, diaphoretic, petechiae, pallor Course Vital Signs 11/26/22 11/26/22 11/26/22 20:38 21:27 22:23 Temperature 97.9 F Pulse Rate 81 86 70 Respiratory 16 16 20 Rate Blood Pressure 148/92 150/80 135/70 O2 Sat by Pulse 98 98 98 Oximetry Medical Decision Making - Medical Decision Making Was pt. sent in by a medical professional or institution (, PA, RATING EXAMINER, urgent care, hospital, or senior care...) When possible be specific @ -No Did you speak to anyone other than the patient for history (EMS, parent, family, police, friend...)? What history was obtained from this source @ -No Did you review nursing and triage notes (agree or disagree)? Why? @ -I reviewed and agree with nursing and triage notes Were old charts reviewed (outside hosp., previous admission, EMS record, old EKG, old radiological studies, urgent care reports/EKG's, senior care records)? Report findings @ -No old charts were reviewed Differential Diagnosis (chest pain, altered mental status, abdominal pain women, abdominal pain men, vaginal bleeding, weakness, fever, dyspnea, syncope, headache, dizziness, GI bleed, back pain, seizure, CVA, palpatations, mental health, musculoskeletal)? @ -DVT, muscle spasms, musculoskeletal pain, cellulitis EKG interpreted by me (3pts min.). @ -n/a X-rays interpreted by me (1pt min.). @ -None done CT interpreted by me (1pt min.). @ -None done U/S interpreted by me (1pt. min.). @ -no What testing was considered but not performed or refused? (CT, X-rays, U/S, labs)? Why? @ -None What meds were considered but not given or refused? Why? @ -None Did you discuss the management of the patient with other professionals (professionals i.e. , PA, RATING EXAMINER, lab, RT, psych nurse, manager social services, film processing supervisor, teacher, traffic officer, caseworker protective services)? Give summary @ -No Was smoking cessation discussed for >3mins.? @ -No Was critical care preformed (if so, how long)? @ -No Were there social determinants of health that impacted care today? How? (Homelessness, low income, unemployed, alcoholism, drug addiction, transportation, low edu. Level, literacy, decrease access to med. care, correction, rehab)? @ -No Was there de-escalation of care discussed even if they declined (Discuss DNR or withdrawal of care, Hospice)? DNR status @ -No What co-morbidities impacted this encounter? (DM, HTN, Smoking, COPD, CAD, Cance r, CVA, ARF, Chemo, Hep., AIDS, mental health diagnosis, sleep apnea, morbid obesity)? @ -Does have a history of hyperlipidemia, neurologic disorder, seizures and GERD. Was patient admitted / discharged? Hospital course, mention meds given and route, prescriptions, significant lab abnormalities, going to OR and other pertinent info. @ -Discharged. Nontoxic-appearing 52-year-old male presents to the emergency room with complaints of left lower leg cramping all day noticed some swelling today around 8 PM before going to bed. Denies any injuries. Denies any chest pain or shortness of breath. On physical exam there is no evidence of swelling to the left lower extremity with minimal tenderness. Pedal pulses are equal and present bilaterally. He states he's been having leg cramps for over a year intermittently. Ultrasound shows no evidence of DVT. Normal flow compressibility and vascular waveforms. He was directed to increase his fluid intake, take Tylenol and or Motrin for any pain or discomfort and follow-up with his primary care doctor. Return to the emergency room with any new or concerning symptoms. Discharged home ambulatory with steady gait. Case discussed with Dr. Swan. Undiagnosed new problem with uncertain prognosis? @ -No Drug Therapy requiring intensive monitoring for toxicity (Heparin, Nitro, Insulin, Cardizem)? @ -No Were any procedures done? @ -No Diagnosis/symptom? @ -Musculoskeletal leg pain Acute, or Chronic, or Acute on Chronic? @ -Acute Uncomplicated (without systemic symptoms) or Complicated (systemic symptoms)? @ -Uncomplicated Side effects of treatment? @ -No Exacerbation, Progression, or Severe Exacerbation? @ -No Poses a threat to life or bodily function? How? (Chest pain, [place], OR, pneumonia, PE, COPD, DKA, ARF, appy, cholecystitis, CVA, Diverticulitis, Homicidal, Suicidal, threat to staff... and all critical care pts) @ -No Disposition Clinical Impression: Left leg pain Disposition: HOME SELF-CARE Condition: Good Instructions (If sedation given, give patient instructions): Leg Pain (ED) Additional Instructions: Elevate leg for any swelling. Take Tylenol and or Motrin for any pain. Increase your fluid intake to prevent any dehydration which can cause leg cramping. Foll ow-up with the primary care doctor for continuation of care this week. Return to the emergency room with any new or concerning symptoms. Is patient prescribed a controlled substance at d/c from ED?: No Referrals: Ld Núñez DO [Primary Care Provider] - 1-2 days Time of Disposition: 22:03
--- NOTE | 2022-11-26 21:44 | US ---
EXAMINATION TYPE: US venous doppler duplex LE LT DATE OF EXAM: 11/26/2022 9:00 PM COMPARISON: NONE CLINICAL INDICATION: Male, 52 years old with history of r/o dvt; Pain and swelling left SIDE PERFORMED: Left TECHNIQUE: The lower extremity deep venous system is examined utilizing real time linear array sonog polina with graded compression, doppler sonography and color-flow sonography. VESSELS IMAGED: Common Femoral Vein Deep Femoral Vein Greater Saphenous Vein * Femoral Vein Popliteal Vein Small Saphenous Vein * Proximal Calf Veins (* superficial vessels) Left Leg: Negative for DVT IMPRESSION: Grayscale, color doppler, spectral doppler imaging performed of the deep veins of the lo wer extremities. There is normal flow, compressibility, vascular waveforms.
[2022-11-26 22:24] VITALS: BP 135/70; PULSE 70; RESP 20
== END 2022-11-26 22:24 | disposition home or self-care (01) ==
LOC: EC 20:22
DX: M79.605 Pain in left leg (principal); G47.30 Sleep apnea, unspecified; Z88.5 Allergy status to narcotic agent; Z87.891 Personal history of nicotine dependence
CPT/HCPCS: 93971; 99283; 96372; J1885

== ENCOUNTER 2022-12-17 08:38 | Emergency (ER) | payer MEDICARE, OTHER ==
--- NOTE | 2022-12-17 09:47 | ED ---
Neck Injury/Pain HPI - General Source: patient, RN notes reviewed Mode of arrival: ambulatory Limitations: no limitations <Roxana Salinas - Last Filed: 12/17/22 12:40> <Morris Ulloa - Last Filed: 12/18/22 07:34> - General Chief Complaint: Neck Pain/Injury Stated Complaint: Lump on neck Time Seen by Provider: 12/17/22 09:14 - History of Present Illness Initial Comments: This is a 52-year-old male who presents to the emergency department for a lump on the right side of his neck. States that yesterday he noticed pain on the right side when he would swallow. When he felt the area, he noticed a lump on the right side of his neck/jaw. Denies any dental pain. Also denies any history of similar symptoms in the past. He is concerned that the lump may be getting bigger. Denies any fevers or chills. Denies any fevers, chills, cough, dyspnea, chest pain, palpitations, abdominal pain, nausea, vomiting, diarrhea, back pain, or headaches. (Roxana Salinas) - Related Data Home Medications Medication Instructions Recorded Confirmed Ranitidine HCl [Zantac] 150 mg PO BID 08/13/18 08/29/18 Topiramate [Topamax] 25 mg PO BID 08/13/18 08/29/18 levETIRAcetam 750 mg PO BID 08/13/18 08/29/18 Ibuprofen [Motrin] 600 mg PO HS 08/29/18 08/29/18 Previous Rx's Medication Instructions Recorded Cephalexin [Keflex] 500 mg PO Q8HR 3 Days #9 cap 08/29/18 Ciprofloxacin HCl [Cipro] 500 mg PO Q12H 5 Days #10 tab 08/29/18 Nirmatrelvir/Ritonavir [Paxlovid 1 each PO BID #1 pack 02/19/22 2X150 mg-100 mg (Eua)] Allergies Allergy/AdvReac Type Severity Reaction Status Date / Time codeine AdvReac Nausea & Verified 12/17/22 08:53 Vomiting Review of Systems ROS Other: All systems not noted in ROS Statement are negative. <Roxana Salinas - Last Filed: 12/17/22 12:40> ROS Other: All systems not noted in ROS Statement are negative. <Morris Ulloa - Last Filed: 12/18/22 07:34> ROS Statement: Those systems with pertinent positive or pertinent negative responses have been documented in the HPI. Past Medical History Past Medical History: GERD/Reflux, Hyperlipidemia, Neurologic Disorder, Osteoarthritis (OA), Seizure Disorder, Sleep Apnea/CPAP/BIPAP Additional Past Medical History / Comment(s): MIGRAINE HEADACHES, ANEURYSM-LEFT SIDE OF BRAIN, SEIZURE-LAST SEIZURE 2011, has machine for sleep apnea History of Any Multi-Drug Resistant Organisms: None Reported Past Surgical History: Hernia Repair Past Anesthesia/Blood Transfusion Reactions: No Reported Reaction Additional Past Anesthesia/Blood Transfusion Reaction / Comment(s): FIRST ANESTHETIC Past Psychological History: No Psychological Hx Reported Smoking Status: Former smoker Past Alcohol Use History: None Reported Past Drug Use History: None Reported - Past Family History Mother Family Medical History: No Reported History Brother(s) Family Medical History: Cancer Additional Family Medical History / Comment(s): prostate cancer <Roxana Salinas - Last Filed: 12/17/22 12:40> General Exam Limitations: no limitations General appearance: alert, in no apparent distress Head exam: Present: atraumatic, normocephalic, normal inspection Neck exam: Present: other (Small palpable nontender lump to the right submandibular region. No overlying erythema. Multiple dental caries.) Respiratory exam: Present: normal lung sounds bilaterally. Absent: respiratory distress, wheezes, rales, rhonchi, stridor Cardiovascular Exam: Present: regular rate, normal rhythm, normal heart sounds. Absent: systolic murmur, diastolic murmur, rubs, gallop, clicks Neurological exam: Present: alert, oriented X3, CN II-XII intact Psychiatric exam: Present: normal affect, normal mood Skin exam: Present: warm, dry, intact, normal color. Absent: rash <Roxana Salinas - Last Filed: 12/17/22 12:40> Course Vital Signs 12/17/22 12/17/22 08:50 11:55 Temperature 98.4 F 98.2 F Pulse Rate 91 90 Respiratory 18 16 Rate Blood Pressure 154/91 131/89 O2 Sat by Pulse 98 100 Oximetry Medical Decision Making - Radiology Data Radiology results: report reviewed, image reviewed <Roxana Salinas - Last Filed: 12/17/22 12:40> - Medical Decision Making This is a 52-year-old male who presents to the emergency department for a lump to the right side of his neck. Was pt. sent in by a medical professional or institution? @ -No Did you speak to anyone other than the patient for history? @ -No Did you review nursing and triage notes? @ -Yes, and I agree, it is accurate with regards to the patient's symptoms. Were old charts reviewed? @ -No Differential Diagnosis? @ -Neck Lump: Dental abscess, lymphadenopathy, sialadenitis, sialolithiasis EKG interpreted by me (3pts min.)? @ -Not obtained X-rays interpreted by me (1pt min.)? @ -Not obtained CT interpreted by me (1pt min.)? @ -Not obtained U/S interpreted by me (1pt. min.)? @ -Not interpreted by me What testing was considered but not performed? (CT, X-rays, U/S, labs)? Why? @ -None What meds were considered but not given? Why? @ -None Did you discuss the management of the patient with other professionals? @ -No Did you reconcile home meds? @ -No Was smoking cessation discussed for >3mins.? @ -No Was critical care preformed (if so, how long)? @ -No Were there social determinants of health that impacted care today? How? (Homelessness, low income, unemployed, alcoholism, drug addiction, transportation, low edu. Level, literacy, decrease access to med. care, usp, rehab)? @ -No Was there de-escalation of care discussed even if they declined? (Discuss DNR or withdrawal of care, Hospice)? @ -No What co-morbidities impacted this encounter? (DM, HTN, Smoking, COPD, CAD, Cancer, CVA, Hep., AIDS, mental health diagnosis, sleep apnea, morbid obesity)? @ -None Was patient admitted / discharged? @ -Discharged. Ultrasound of the affected area was obtained. Findings reveal nonspecific lymphadenopathy. This was discussed with the patient. Advised that he can alternate with ibuprofen and Tylenol as needed for pain relief and apply warm compresses. Instructed him to have close follow-up with his primary care provider, as this will need to be monitored to ensure that it resolves. Undiagnosed new problem with uncertain prognosis? @ -None Drug Therapy requiring intensive monitoring for toxicity (Heparin, Nitro, Insulin, Cardizem)? @ -None Were any procedures done? @ -None Diagnosis/symptom? @ -Lymphadenopathy Acute, or Chronic, or Acute on Chronic? @ -Acute Uncomplicated (without systemic symptoms) or Complicated (systemic symptoms)? @ -Uncomplicated Side effects of treatment? @ -None Exacerbation, Progression, or Severe Exacerbation] @ -Not applicable Poses a threat to life or bodily function? @ -No Return precautions reviewed in depth, the patient is instructed to return to the emergency department with any new, worsening, or concerning symptoms. Patient verbalized understanding. This case was discussed in detail with the attending ED physician, Dr. Ulloa. Presentation, findings, and treatment plan discussed in detail as well. (Roxana Salinas) Disposition Is patient prescribed a controlled substance at d/c from ED?: No <Roxana Salinas - Last Filed: 12/17/22 12:40> <Morris Ulloa - Last Filed: 12/18/22 07:34> Clinical Impression: Lymphadenopathy of head and neck Disposition: HOME SELF-CARE Instructions (If sedation given, give patient instructions): Lymphadenopathy (ED) Additional Instructions: Return to the emergency department with any new, worsening, or concerning symptoms. Alternate with Ibuprofen and Tylenol as needed for pain relief. Take the Tramadol sparingly when your pain is the most severe and avoid driving or operating machinery when taking this. Follow up with your primary care provider in 1-2 days. Referrals: Ld Núñez DO [Primary Care Provider] - 1-2 days
--- NOTE | 2022-12-17 10:21 | US ---
EXAMINATION TYPE: US thyroid st tissue head/neck DATE OF EXAM: 12/17/2022 COMPARISON: NONE CLINICAL INDICATION: Male, 52 years old with history of Lump on right side of neck; Patient states fe eling lump on right side anterior neck, superior to thyroid and submandibular gland since yesterday. Patient states it hurts to swallow. TECHNIQUE: Multiple sonographic images taken of patients area of concern. FINDINGS: Patients area of concern scanned. Two lymph nodes seen with #1 =short axis measurement - 0.6 cm and cortical thickness- 4.3 mm and #2= short axis - 0.5 cm and cortical thickness- 3.1 mm. IMPRESSION: Nonspecific lymph nodes as discussed may be reactive in nature. Correlate clinically consider follow- up.
[2022-12-17] MEDS ORDERED: cefTRIAXone 1,000 MG VIAL (IM USE) IM STA (10:57)
[2022-12-17] MEDS ORDERED: traMADol 50 MG TAB PO STA (10:58)
[2022-12-17] MEDS ORDERED: IBUPROFEN 600 MG STARTER PACK 4 TAB BTL PO STA (10:58)
[2022-12-17] MEDS ORDERED: KETOROLAC 15 MG/ML 1 ML VIAL IM STA (10:58)
[2022-12-17] MEDS ORDERED: traMADol 50 MG STARTER PACK 3 TAB BTL PO STA (10:58)
[2022-12-17 11:57] VITALS: BP 131/89; PULSE 90; RESP 16; TEMP 98.2
== END 2022-12-17 11:57 | disposition home or self-care (01) ==
LOC: EC 08:38
DX: R59.0 Localized enlarged lymph nodes (principal); M19.90 Unspecified osteoarthritis, unspecified site; G40.909 Epilepsy, unspecified, not intractable, without status epilepticus; Z87.891 Personal history of nicotine dependence; Z88.5 Allergy status to narcotic agent; Z79.899 Other long term (current) drug therapy
CPT/HCPCS: 96372 ×3; 99284 ×2; 76536; J0696; J1885

== ENCOUNTER 2023-09-16 12:36 | Emergency (ER) | payer MEDICARE, OTHER ==
[2023-09-16 12:54] VITALS: RESP 18
[2023-09-16] MEDS: AMOXIC-POT CLAV 875-125MG 1 EACH TAB PO STA (13:04)
[2023-09-16] MEDS: MORPHINE SULFATE 2 MG/ML SYRINGE IM STA ×2 (13:04→14:25)
[2023-09-16] MEDS: KETOROLAC 15 MG/ML 1 ML VIAL IM SCH (13:05)
[2023-09-16] MEDS: BENZOCAINE SPRAY 1 CAN MUCOUS MEM STA (13:09)
--- NOTE | 2023-09-16 13:28 | ED ---
ENT HPI - General Chief complaint: Dental/Oral Stated complaint: Tooth Pain Time Seen by Provider: 09/16/23 12:40 Source: patient, RN notes reviewed Mode of arrival: ambulatory Limitations: no limitations - History of Present Illness Initial comments: This is a 53-year-old male who presents to the emergency department for dental pain. Patient states that he developed pain and swelling over the right lower jaw about 3 days ago. He went to urgent care 2 days ago and has been on amoxicillin since. He saw his dentist today, and was advised that he needed to come to the emergency department for a stronger antibiotic before they would do anything. He is taking Tylenol without significant relief in pain. Denies any fever/chills. He has no difficulty speaking or shortness of breath. MD complaint: tooth pain - Related Data Home Medications Medication Instructions Recorded Confirmed Ranitidine HCl [Zantac] 150 mg PO BID 08/13/18 08/29/18 Topiramate [Topamax] 25 mg PO BID 08/13/18 08/29/18 levETIRAcetam 750 mg PO BID 08/13/18 08/29/18 Ibuprofen [Motrin] 600 mg PO HS 08/29/18 08/29/18 Previous Rx's Medication Instructions Recorded Cephalexin [Keflex] 500 mg PO Q8HR 3 Days #9 cap 08/29/18 Ciprofloxacin HCl [Cipro] 500 mg PO Q12H 5 Days #10 tab 08/29/18 Nirmatrelvir/Ritonavir [Paxlovid 1 each PO BID #1 pack 02/19/22 2X150 mg-100 mg (Eua)] Amoxic-Pot Clav 875-125Mg 1 tab PO Q12HR 10 Days #20 tab 09/16/23 [Augmentin 875-125] Ibuprofen [Motrin] 600 mg PO Q8HR PRN #30 tab 09/16/23 Allergies Allergy/AdvReac Type Severity Reaction Status Date / Time codeine AdvReac Nausea & Verified 09/16/23 12:39 Vomiting Review of Systems ROS Statement: Those systems with pertinent positive or pertinent negative responses have been documented in the HPI. ROS Other: All systems not noted in ROS Statement are negative. Past Medical History Past Medical History: GERD/Reflux, Hyperlipidemia, Neurologic Disorder, Osteoarthritis (OA), Seizure Disorder, Sleep Apnea/CPAP/BIPAP Additional Past Medical History / Comment(s): MIGRAINE HEADACHES, ANEURYSM-LEFT SIDE OF BRAIN, SEIZURE-LAST SEIZURE 2011, has machine for sleep apnea History of Any Multi-Drug Resistant Organisms: None Reported Past Surgical History: Hernia Repair Past Anesthesia/Blood Transfusion Reactions: No Reported Reaction Additional Past Anesthesia/Blood Transfusion Reaction / Comment(s): FIRST ANESTHETIC Past Psychological History: No Psychological Hx Reported Smoking Status: Former smoker Past Alcohol Use History: None Reported Past Drug Use History: None Reported - Past Family History Mother Family Medical History: No Reported History Brother(s) Family Medical History: Cancer Additional Family Medical History / Comment(s): prostate cancer General Exam Limitations: no limitations General appearance: alert, in no apparent distress Head exam: Present: atraumatic, normocephalic, normal inspection ENT exam: Present: other (Multiple dental caries with this palpable dental abscess along the right lower jawline. There is no elevation of the tongue or swelling to the floor of the mouth.) Respiratory exam: Present: normal lung sounds bilaterally. Absent: respiratory distress, wheezes, rales, rhonchi, stridor Neurological exam: Present: alert, oriented X3, CN II-XII intact Psychiatric exam: Present: normal affect, normal mood Skin exam: Present: warm, dry, intact, normal color. Absent: rash Course Vital Signs 09/16/23 09/16/23 12:37 14:53 Temperature 98.6 F 98.1 F Pulse Rate 94 64 Respiratory 18 18 Rate Blood Pressure 117/81 117/76 O2 Sat by Pulse 98 97 Oximetry Procedures - Incision & Drainage Consent Obtained: verbal consent Indication: Abscess Site: oral Size (cm): 2 Anesthetic Used: lidocaine 2%, with epi Amount (mLs): 2 Sterile Field Used?: Yes Scalpel Used: #11 Medical Decision Making - Medical Decision Making This is a 53 year old male who presents to the emergency department for dental pain. Was pt. sent in by a medical professional or institution? @ -His dentist Did you speak to anyone other than the patient for history? @ -No Did you review nursing and triage notes? @ -Yes, and I agree, it is accurate with regards to the patient's symptoms. Were old charts reviewed? @ -No Differential Diagnosis? @ -Differential Dental Pain: Dental abscess, chipped tooth, dental carries, billy's angina, trigeminal neuralgia, this is not meant to be an all-inclusive list. EKG interpreted by me (3pts min.)? @ -Not obtained X-rays interpreted by me (1pt min.)? @ -Not obtained CT interpreted by me (1pt min.)? @ -Not obtained U/S interpreted by me (1pt. min.)? @ -Not obtained What testing was considered but not performed? (CT, X-rays, U/S, labs)? Why? @ -None What meds were considered but not given? Why? @ -None Did you discuss the management of the patient with other professionals? @ -No Did you reconcile home meds? @ -No Was smoking cessation discussed for >3mins.? @ -No Was critical care preformed (if so, how long)? @ -No Were there social determinants of health that impacted care today? How? (Homelessness, low income, unemployed, alcoholism, drug addiction, transportation, low edu. Level, literacy, decrease access to med. care, nursing home, rehab)? @ -No Was there de-escalation of care discussed even if they declined? (Discuss DNR or withdrawal of care, Hospice)? @ -No What co-morbidities impacted this encounter? (DM, HTN, Smoking, COPD, CAD, Cancer, CVA, Hep., AIDS, mental health diagnosis, sleep apnea, morbid obesity)? @ -None Was patient admitted / discharged? @ -Discharged. Physical examination consistent with a dental abscess along the right lower jawline. He had no swelling to the floor of the mouth or elevation of the tongue to suggest Billy's angina. There was an area that appeared to have mild drainage. Scalpel was used to extend this area and purulent material was expressed. He did have improvement in symptoms afterwards. Pain controlled in the emergency department. Prescription for Augmentin and ibuprofen provided with dosing instructions reviewed. Patient discharged home in stable condition and advised to follow-up with his dentist. Undiagnosed new problem with uncertain prognosis? @ -None Drug Therapy requiring intensive monitoring for toxicity (Heparin, Nitro, Insulin, Cardizem)? @ -None Were any procedures done? @ -I&D of dental abscess Diagnosis/symptom? @ -Dental abscess Acute, or Chronic, or Acute on Chronic? @ -Acute Uncomplicated (without systemic symptoms) or Complicated (systemic symptoms)? @ -Uncomplicated Side effects of treatment? @ -None Exacerbation, Progression, or Severe Exacerbation] @ -Not applicable Poses a threat to life or bodily function? @ -No Return precautions reviewed in depth, the patient is instructed to return to the emergency department with any new, worsening, or concerning symptoms. Patient verbalized understanding. This case was discussed in detail with the attending ED physician, Dr. Mary. Presentation, findings, and treatment plan discussed in detail as well. Disposition Clinical Impression: Dental abscess Disposition: HOME SELF-CARE Instructions (If sedation given, give patient instructions): Dental Abscess (ED) Additional Instructions: Return to the emergency department with any new, worsening, or concerning symptoms. Take the new antibiotic as prescribed for 10 days. Alternate with ibuprofen and Tylenol as needed for pain relief. Follow up with your dentist. Prescriptions: Amoxic-Pot Clav 875-125Mg [Augmentin 875-125] 1 tab PO Q12HR 10 Days #20 tab Ibuprofen [Motrin] 600 mg PO Q8HR PRN #30 tab PRN Reason: Pain Is patient prescribed a controlled substance at d/c from ED?: No Referrals: Ld Núñez DO [Primary Care Provider] - 1-2 days Time of Disposition: 14:46
[2023-09-16] MEDS ORDERED: KETOROLAC 15 MG/ML 1 ML VIAL IM SCH (14:00)
[2023-09-16] MEDS: traMADol 50 MG STARTER PACK 3 TAB BTL PO STA (14:28)
[2023-09-16 15:13] VITALS: BP 117/76; PULSE 64; TEMP 98.1
== END 2023-09-16 14:55 | disposition home or self-care (01) ==
LOC: EC 12:36
DX: K04.7 Periapical abscess without sinus (principal); Z87.891 Personal history of nicotine dependence; Z88.5 Allergy status to narcotic agent
CPT/HCPCS: 99283; 96372 ×3; 10060; J2270; J1885

== ENCOUNTER 2024-05-16 12:36 | Emergency (ER) | payer OTHER, MEDICARE ==
--- NOTE | 2024-05-16 13:10 | ED ---
Fever HPI - General Chief Complaint: Fever Stated Complaint: Fever, chills Time Seen by Provider: 05/16/24 12:56 Source: patient, RN notes reviewed Mode of arrival: ambulatory Limitations: no limitations - History of Present Illness Initial Comments: 54-year-old male presenting for fever x 3 days with bodyaches and cough. States he has been sleeping often and feels very fatigued. He has been taking Tylenol for fever. Tolerating orals well. Denies chest pain, shortness of breath, abdominal pain. Denies any significant past medical history - Related Data Home Medications Medication Instructions Recorded Confirmed Ranitidine HCl [Zantac] 150 mg PO BID 08/13/18 08/29/18 Topiramate [Topamax] 25 mg PO BID 08/13/18 08/29/18 levETIRAcetam 750 mg PO BID 08/13/18 08/29/18 Ibuprofen [Motrin] 600 mg PO HS 08/29/18 08/29/18 Previous Rx's Medication Instructions Recorded Cephalexin [Keflex] 500 mg PO Q8HR 3 Days #9 cap 08/29/18 Ciprofloxacin HCl [Cipro] 500 mg PO Q12H 5 Days #10 tab 08/29/18 Nirmatrelvir/Ritonavir [Paxlovid 1 each PO BID #1 pack 02/19/22 2X150 mg-100 mg (Eua)] Amoxic-Pot Clav 875-125Mg 1 tab PO Q12HR 10 Days #20 tab 09/16/23 [Augmentin 875-125] Ibuprofen [Motrin] 600 mg PO Q8HR PRN #30 tab 09/16/23 Azithromycin [Zithromax Z Pack] 0 tab PO DIRECTED #6 tab 05/16/24 Allergies Allergy/AdvReac Type Severity Reaction Status Date / Time codeine AdvReac Nausea & Verified 09/16/23 12:39 Vomiting Review of Systems ROS Statement: Those systems with pertinent positive or pertinent negative responses have been documented in the HPI. ROS Other: All systems not noted in ROS Statement are negative. Past Medical History Past Medical History: GERD/Reflux, Hyperlipidemia, Neurologic Disorder, Osteoarthritis (OA), Seizure Disorder, Sleep Apnea/CPAP/BIPAP Additional Past Medical History / Comment(s): MIGRAINE HEADACHES, ANEURYSM-LEFT SIDE OF BRAIN, SEIZURE-LAST SEIZURE 2011, has machine for sleep apnea History of Any Multi-Drug Resistant Organisms: None Reported Past Surgical History: Hernia Repair Past Anesthesia/Blood Transfusion Reactions: No Reported Reaction Additional Past Anesthesia/Blood Transfusion Reaction / Comment(s): FIRST ANESTHETIC Past Psychological History: No Psychological Hx Reported Smoking Status: Former smoker Past Alcohol Use History: None Reported Past Drug Use History: None Reported - Past Family History Mother Family Medical History: No Reported History Brother(s) Family Medical History: Cancer Additional Family Medical History / Comment(s): prostate cancer General Exam Limitations: no limitations General appearance: alert, in no apparent distress Head exam: Present: atraumatic, normocephalic, normal inspection Eye exam: Present: normal appearance, PERRL, EOMI. Absent: scleral icterus, conjunctival injection, periorbital swelling ENT exam: Present: normal exam, normal oropharynx, mucous membranes moist Neck exam: Present: normal inspection. Absent: tenderness, meningismus, lymphadenopathy Respiratory exam: Present: normal lung sounds bilaterally. Absent: respiratory distress, wheezes, rales, rhonchi, stridor Cardiovascular Exam: Present: regular rate, normal rhythm, normal heart sounds. Absent: systolic murmur, diastolic murmur, rubs, gallop, clicks Neurological exam: Present: alert, oriented X3 Psychiatric exam: Present: normal affect, normal mood Skin exam: Present: warm, dry, intact, normal color. Absent: rash Course Vital Signs 05/16/24 05/16/24 12:53 15:01 Temperature 101.3 F H 99.3 F Pulse Rate 107 H 89 Respiratory 18 16 Rate Blood Pressure 125/82 118/79 O2 Sat by Pulse 97 97 Oximetry Medical Decision Making - Medical Decision Making Was pt. sent in by a medical professional or institution (, PA, STUDIO OWNER, urgent care, hospital, or long term...) When possible be specific @ -No Did you speak to anyone other than the patient for history (EMS, parent, family, police, friend...)? What history was obtained from this source @ -No Did you review nursing and triage notes (agree or disagree)? Why? @ -I reviewed and agree with nursing and triage notes Were old charts reviewed (outside hosp., previous admission, EMS record, old EKG, old radiological studies, urgent care reports/EKG's, long term records)? Report findings @ -No old charts were reviewed Differential Diagnosis (chest pain, altered mental status, abdominal pain women, abdominal pain men, vaginal bleeding, weakness, fever, dyspnea, syncope, headache, dizziness, GI bleed, back pain, seizure, CVA, palpatations, mental health, musculoskeletal)? @ -Pneumonia, bronchitis, COVID, influenza, viral URI EKG interpreted by me (3pts min.). @ -None X-rays interpreted by me (1pt min.). @ -Chest x-ray reveals mild right midlung pneumonia CT interpreted by me (1pt min.). @ -None done U/S interpreted by me (1pt. min.). @ -None done What testing was considered but not performed or refused? (CT, X-rays, U/S, labs)? Why? @ -None What meds were considered but not given or refused? Why? @ -None Did you discuss the management of the patient with other professionals (professionals i.e. , PA, STUDIO OWNER, lab, RT, psych nurse, social psychologist, supervisor dehydrogenation, teacher, hospital admissions officer, senior case manager)? Give summary @ -No Was smoking cessation discussed for >3mins.? @ -No Was critical care preformed (if so, how long)? @ -No Were there social determinants of health that impacted care today? How? (Homelessness, low income, unemployed, alcoholism, drug addiction, transportation, low edu. Level, literacy, decrease access to med. care, usp, rehab)? @ -No Was there de-escalation of care discussed even if they declined (Discuss DNR or withdrawal of care, Hospice)? DNR status @ -No What co-morbidities impacted this encounter? (DM, HTN, Smoking, COPD, CAD, Cancer, CVA, ARF, Chemo, Hep., AIDS, mental health diagnosis, sleep apnea, morbid obesity)? @ -None Was patient admitted / discharged? Hospital course, mention meds given and route, prescriptions, significant lab abnormalities, going to OR and other pertinent info. @ -Discharged. This is a 54-year-old male presenting with fever x 2 days with bodyaches and cough. Initial vital signs remarkable for temperature of 101.3 F, tachycardic at 107 bpm. No acute distress. Patient was provided with ibuprofen. He is negative for COVID, influenza, and RSV. Chest x-ray remarkable for mild right midlung infiltrate. Discussed diagnosis of pneumonia with patient. Upon reevaluation, temperature is 99.3, heart rate 89 bpm. Patient was given dose of IM Rocephin and discharged with azithromycin. Discussed appropriate return parameters and follow-up care. Patient is agreeable to this plan. Case was discussed with my ED attending Dr. Mary. Undiagnosed new problem with uncertain prognosis? @ -No Drug Therapy requiring intensive monitoring for toxicity (Heparin, Nitro, Insulin, Cardizem)? @ -No Were any procedures done? @ -No Diagnosis/symptom? @ -Pneumonia Acute, or Chronic, or Acute on Chronic? @ -Acute Uncomplicated (without systemic symptoms) or Complicated (systemic symptoms)? @ -Uncomplicated Side effects of treatment? @ -No Exacerbation, Progression, or Severe Exacerbation? @ -No Poses a threat to life or bodily function? How? (Chest pain, [place], NV, pneumonia, PE, COPD, DKA, ARF, appy, cholecystitis, CVA, Diverticulitis, Homicidal, Suicidal, threat to staff... and all critical care pts) @ -Not at this time - Lab Data Lab Results 05/16/24 Range/Units 13:22 Influenza Type A (PCR) Not Detected (Not Detectd) Influenza Type B (PCR) Not Detected (Not Detectd) RSV (PCR) Not Detected (Not Detectd) SARS-CoV-2 (PCR) Not Detected (Not Detectd) Disposition Clinical Impression: Pneumonia Disposition: HOME SELF-CARE Condition: Stable Instructions (If sedation given, give patient instructions): Bacterial Pneumonia (ED) Additional Instructions: Take Z-Igor as directed. Alternate Tylenol and ibuprofen every 4 hours for fever/body aches. Follow-up with PCP in 3 to 5 days for reevaluation. Please return to the Emergency Department if symptoms worsen or any other concerns. Prescriptions: Azithromycin [Zithromax Z Pack] 0 tab PO DIRECTED #6 tab Is patient prescribed a controlled substance at d/c from ED?: No Referrals: Ld Núñez DO [Primary Care Provider] - 1-2 days Time of Disposition: 14:57
[2024-05-16] MEDS: IBUPROFEN 600 MG TAB PO STA (13:19)
--- NOTE | 2024-05-16 13:24 | XR ---
EXAMINATION TYPE: XR chest 2V DATE OF EXAM: 05/16/2024 1:16 PM COMPARISON: None. CLINICAL INDICATION: Male, 54 years old with history of fever, cough, TECHNIQUE: XR chest 2V view(s) obtained. FINDINGS: The heart size is normal. The pulmonary vasculature is normal. Vague irregular densities within the right midlung. Correlate for pneumonia. Follow-up is recommended .. IMPRESSION: 1. Mild right midlung infiltrate. Correlate for pneumonia. Follow-up recommended [facility], , 05/16/2024 1:22 PM
[2024-05-16 15:02] VITALS: BP 118/79; PULSE 89; RESP 16; TEMP 99.3
[2024-05-16] MEDS: cefTRIAXone 1,000 MG VIAL (IM USE) IM STA (15:02)
== END 2024-05-16 15:08 | disposition home or self-care (01) ==
LOC: EC 12:36
DX: J18.9 Pneumonia, unspecified organism (principal); Z87.891 Personal history of nicotine dependence; Z88.5 Allergy status to narcotic agent
CPT/HCPCS: 87636; 71046; 99284; 96372; J0696